=== PATIENT | male | born 1975 | race Caucasian/White ===

== ENCOUNTER 2016-07-09 20:15 | Emergency (ER) | payer BC ==
[2016-07-09 21:10] VITALS: BP 163/109
[2016-07-09] MEDS ORDERED: Ketorolac INJ* 60 MG/2 ML VIAL IM ONE (21:32)
--- NOTE | 2016-07-09 22:03 | RAD ---
INDICATION: Neck pain. COMPARISON: There are no prior studies available for comparison. TECHNIQUE: 5 views of the cervical spine were obtained including lateral, oblique, AP and open-mouth odontoid views. FINDINGS: The exam is slightly limited. The skull base is cut off on the film as well as the inferior portion of the C7 vertebra. There is straightening of the cervical spine with decrease in the normal cervical lordosis. No prevertebral soft tissue swelling or fracture is seen. There is mild disc space narrowing and uncinate process spurring present at the C3-C4, C4-C5 and C5-C6 levels. There is mild to moderate bilateral neural foraminal narrowing at those levels. IMPRESSION: 1. SLIGHTLY LIMITED EXAM. 2. STRAIGHTENING OF THE CERVICAL SPINE. 3. MILD TO MODERATE DIFFUSE DEGENERATIVE DISC DISEASE.
[2016-07-09] MEDS ORDERED: Carisoprodol TAB* 350 MG PO ONE (22:16)
[2016-07-09] MEDS ORDERED: HYDROcodone/ACETAMIN 5-325 MG* 1 TAB PO ONE ×2 (22:16→22:17)
--- NOTE | 2016-07-09 22:30 | UC ---
Neck Pain HPI - HPI Summary HPI Summary: THREE WEEKS OF NECK PAIN AND SPASMS WORSE ON LEFT SIDE OF NECK NEAR SPINE. HISTORY OF CHRONIC BACK PROBLEMS. ATTEMPTED TO TREAT CONCERN WITH IBUPROFEN, BUT PAIN GETTING MORE SEVERE. NOW 03/28. RADIATES UP NECK AND DOWN SPINE AND LEFT SHOULDER - History of Current Complaint Chief Complaint: UCGeneralIllness Stated Complaint: NECK PAIN Time Seen by Provider: 07/09/16 21:26 Hx Obtained From: Patient Onset/Duration Of Injury/Symptoms: Weeks Onset/Duration: Gradual Onset, Lasting Weeks, Worse Since - LAST THREE DAYS Severity: Moderate Location: Discrete At: - LEFT NECK Character: Spasmotic Aggravating Factors: Movement Alleviating Factors: Nothing Associated Signs & Symptoms: Positive: Nuchal Rigity - Risk Factors Meningitis Risk Factors: Negative - Allergies/Home Medications Allergies/Adverse Reactions: Allergies Allergy/AdvReac Type Severity Reaction Status Date / Time Bee Venom Allergy SWELLS Verified 07/09/16 21:10 Enalapril Allergy Rash Verified 07/09/16 21:10 Home Medications: Home Medications Ibuprofen TAB* [Advil TAB*] 800 mg PO PRN 07/09/16 [History] Naproxen TAB* [Naprosyn TAB*] 500 mg PO PRN 07/09/16 [History] PMH/Surg Hx/FS Hx/Imm Hx Previously Healthy: Yes Endocrine History Of: Denies: Diabetes, Thyroid Disease, Hyperthyroidism, Hypothyroidism, Dyslipidemia Cardiovascular History Of: Reports: Cardiac Disorders - HX A-FIB (HAD ABLATION) , Atrial Fibrillation - S/P ABLATION 06/04/15 Denies: Hypertension, Pacemaker/ICD, Myocardial Infarction, Congestive Heart Failure, Deep Vein Thrombosis, Bleeding Disorders Respiratory History Of: Denies: COPD, Asthma, Bronchitis, Pneumonia, Pulmonary Embolism GI/ History Of: Denies: Gastroesophageal Reflux, Ulcer, Gastrointestinal Bleed, Gall Bladder Disease, Kidney Stones, Diverticulitis, Renal Disease, Urosepsis Neurological History Of: Denies: TIA, CVA, Dementia, Seizures, Migraine Psychological History Of: Reports: Anxiety, Depression Denies: Bipolar Disorder, Schizophrenia, Post Traumatic Stress Disorder Cancer History Of: Denies: Lung Cancer, Colorectal Cancer, Breast Cancer, Prostate Cancer, Cervical Cancer Other History Of: Anticoagulant Therapy - He is supposed to be on Xarelto, but he ran out of this Rx 08/04. Negative For: HIV, Hepatitis B, Hepatitis C - Surgical History Surgical History: Yes Surgery Procedure, Year, and Place: HEART ABLATION FOR A-FIB 06/04/15, SURGERY FOR MELANOMA - Family History Known Family History: Positive: Diabetes, Other - STroke in father. Negative: Cardiac Disease, Hypertension Family History: NON CONTRIBUTORY - Social History Alcohol Use: Occasionally Substance Use Type: None Smoking Status (MU): Never Smoked Tobacco Type: Cigarettes Amount Used/How Often: CIGARS FOR ABOUT 1 YEAR Length of Time of Smoking/Using Tobacco: 1 YEAR Have You Smoked in the Last Year: No When Did the Patient Quit Smoking/Using Tobacco: 2 OR 3 YEARS AGO Cessation Counseling: Patient Advised to Stop - Immunization History Most Recent Influenza Vaccination: unknown Most Recent Tetanus Shot: unknown Most Recent Pneumonia Vaccination: unknown Review Of Systems Constitutional: Positive: Negative Skin: Positive: Negative Eyes: Positive: Negative ENT: Positive: Negative Respiratory: Positive: Negative Cardiovascular: Positive: Negative Gastrointestinal: Positive: Negative Genitourinary: Positive: Negative Musculoskeletal: Positive: Arthralgia, Myalgia Neurological: Positive: Negative Psychological: Positive: Negative All Other Systems Reviewed And Are Negative: Yes Physical Exam Triage Information Reviewed: Yes Appearance: Well-Appearing, Well-Nourished, Pain Distress Vital Signs: Initial Vital Signs Temp 99.2 F 07/09/16 21:06 Pulse 95 07/09/16 21:06 Resp 18 07/09/16 21:06 BP 163/109 07/09/16 21:06 Pulse Ox 100 07/09/16 21:06 Vital Signs Reviewed: Yes Eye Exam: Normal Eyes: Positive: Conjunctiva Clear ENT Exam: Normal ENT: Positive: Normal ENT inspection, Hearing grossly normal, Pharynx normal, TMs normal Dental Exam: Normal Neck: Positive: No Lymphadenopathy, Tenderness @ - LEFT CERVICAL PARASPINAL MUSCLES. Negative: Nuchal Rigidity Respiratory Exam: Normal Respiratory: Positive: Chest non-tender, Lungs clear, Normal breath sounds, No respiratory distress, No accessory muscle use Cardiovascular Exam: Normal Cardiovascular: Positive: RRR, No Murmur, Pulses Normal Abdominal Exam: Normal Abdomen Description: Positive: Nontender, No Organomegaly Musculoskeletal: Positive: ROM Limited @ - DISCOMFORT WITH FLEXION ROTATION OF NECK; NO CENTRAL SPINAL TENDERNESS. NEGATIVE BRUDZINSKIS, NEGATIVE KERNINGS Neurological Exam: Normal Psychological Exam: Normal Psychological: Positive: Normal Response To Family Skin Exam: Normal Neck Pain Course/Dx - Differential Dx/Diagnosis Differential Dx/HQI/PQRI: Sprain, Strain, Torticollis Provider Diagnoses: LEFT SIDED CERVICAL TORTICOLLIS Discharge - Discharge Plan Condition: Stable Disposition: HOME Prescriptions: Carisoprodol TAB* [Soma TAB*] 350 mg PO BID PRN #10 tab MDD two tabs PRN Reason: Spasms HYDROcodone/ACETAMIN 5-325 MG* [[place] 5-325 TAB*] 1 tab PO Q8H PRN #15 tab MDD THREE TABS PRN Reason: Pain Patient Education Materials: Cervical Strain (ED), Spasmodic Torticollis (ED) Referrals: [facility] [Outside] Haroon SLOAN,Godwin Pike [Primary Care Provider] - Additional Instructions: PHYSICAL THERAPY REFERRAL: You have been prescribed physical therapy. Treatments may include stretching, exercise, application of heat or cold, and other modalities. After an injury, PT can reduce swelling and pain. In recovery, PT is used to restore mobility and strength. Your specific treatment goals are: Reduction of Swelling (EGS, US, ice as needed) __x___ Pain Reduction (EGS, US, ice as needed) ____x_ TENS Pack Fitting and Instruction Wound Hydrotherapy ___x__ Preservation of Mobility ___x__ Quaker of Mobility ___x__ Strength Quaker ___x__ Work or Sports Hardening This instruction sheet also serves as your PHYSICAL THERAPY REFERRAL! Please take it with you to the therapist, so he/she will be aware of your diagnosis and treatment plan. You may see the physical therapist of your choice for these treatments, but may wish to check with your insurance to be sure the provider you select is covered. It's important to see the doctor to whom you have been referred for follow up.x
== END 2016-07-09 22:42 | disposition home or self-care (01) ==
LOC: UCEAST 20:15
DX: M43.6 Torticollis (principal); Z79.01 Long term (current) use of anticoagulants; I48.91 Unspecified atrial fibrillation; Z87.891 Personal history of nicotine dependence
CPT/HCPCS: 72050; 96372; 99213; A9270-GY; G0463; J1885

== ENCOUNTER 2016-08-13 19:47 | Emergency (ER) | payer BC ==
[2016-08-13 20:50] VITALS: BP 137/71
--- NOTE | 2016-08-13 21:20 | UC ---
FLU HPI - HPI Summary HPI Summary: Day 2 of fever, cough, cold chills and loose stool - History of Current Complaint Chief Complaint: UCGeneralIllness Stated Complaint: FEVER, AND DIARRHEA Time Seen by Provider: 08/13/16 21:06 Hx Obtained From: Patient Onset/Duration: Sudden Onset, Lasting Days - day 2, Still Present Severity Currently: Moderate Severity Initially: Moderate Pain Intensity: 7 Pain Scale Used: 0-10 Numeric Associated Signs & Symptoms: Positive: Fever, Myalgia, Cough, Nasal Congestion, Headache, Diarrhea - Allergy/Home Medications Allergies/Adverse Reactions: Allergies Allergy/AdvReac Type Severity Reaction Status Date / Time Bee Venom Allergy SWELLS Verified 07/09/16 21:10 Enalapril Allergy Rash Verified 07/09/16 21:10 Home Medications: Home Medications Oseltamivir CAP* [Tamiflu CAP*] 75 mg PO DAILY 08/13/16 [History Confirmed 08/13] PMH/Surg Hx/FS Hx/Imm Hx Previously Healthy: No Endocrine History Of: Denies: Diabetes, Thyroid Disease, Hyperthyroidism, Hypothyroidism, Dyslipidemia Cardiovascular History Of: Reports: Cardiac Disorders - HX A-FIB (HAD ABLATION) , Atrial Fibrillation - S/P ABLATION 06/04/15 Denies: Hypertension, Pacemaker/ICD, Myocardial Infarction, Congestive Heart Failure, Deep Vein Thrombosis, Bleeding Disorders Respiratory History Of: Denies: COPD, Asthma, Bronchitis, Pneumonia, Pulmonary Embolism GI/ History Of: Denies: Gastroesophageal Reflux, Ulcer, Gastrointestinal Bleed, Gall Bladder Disease, Kidney Stones, Diverticulitis, Renal Disease, Urosepsis Neurological History Of: Denies: TIA, CVA, Dementia, Seizures, Migraine Psychological History Of: Reports: Anxiety, Depression Denies: Bipolar Disorder, Schizophrenia, Post Traumatic Stress Disorder Cancer History Of: Denies: Lung Cancer, Colorectal Cancer, Breast Cancer, Prostate Cancer, Cervical Cancer Other History Of: Anticoagulant Therapy - He is supposed to be on Xarelto, but he ran out of this Rx 08/04. Negative For: HIV, Hepatitis B, Hepatitis C - Surgical History Surgical History: Yes Surgery Procedure, Year, and Place: HEART ABLATION FOR A-FIB 06/04/15, SURGERY FOR [facility] - Family History Known Family History: Positive: Diabetes, Other - STroke in father. Negative: Cardiac Disease, Hypertension - Social History Occupation: Employed Full-time Lives: With Family Alcohol Use: Occasionally Substance Use Type: None Smoking Status (MU): Never Smoked Tobacco Type: Cigarettes Amount Used/How Often: CIGARS FOR ABOUT 1 YEAR Length of Time of Smoking/Using Tobacco: 1 YEAR Have You Smoked in the Last Year: No When Did the Patient Quit Smoking/Using Tobacco: 2 OR 3 YEARS AGO - Immunization History Most Recent Influenza Vaccination: unknown Most Recent Tetanus Shot: unknown Most Recent Pneumonia Vaccination: unknown Review of Systems Constitutional: Fever, Chills, Fatigue Skin: Negative Eyes: Negative ENT: Nasal Discharge Respiratory: Cough Cardiovascular: Negative Gastrointestinal: Diarrhea Genitourinary: Negative Motor: Negative Neurovascular: Negative Musculoskeletal: Arthralgia, Myalgia Neurological: Negative Psychological: Negative All Other Systems Reviewed And Are Negative: Yes Physical Exam Triage Information Reviewed: Yes Appearance: No Pain Distress, Ill-Appearing, Obese Vital Signs: Initial Vital Signs Temp 100.9 F 08/13/16 20:46 Pulse 122 08/13/16 20:46 Resp 18 08/13/16 20:46 BP 137/71 08/13/16 20:46 Pulse Ox 97 08/13/16 20:46 Vital Signs Reviewed: Yes Eye Exam: Normal Eyes: Positive: Conjunctiva Clear ENT Exam: Normal ENT: Positive: Normal ENT inspection, Hearing grossly normal, Pharynx normal, Nasal congestion, Nasal drainage, TMs normal. Negative: Tonsillar swelling, Tonsillar exudate, Trismus, Muffled/hoarse voice Neck exam: Normal Neck: Positive: Supple, Nontender, No Lymphadenopathy Respiratory Exam: Normal Respiratory: Positive: Chest non-tender, Lungs clear, Normal breath sounds, No respiratory distress, No accessory muscle use Cardiovascular Exam: Other Cardiovascular: Positive: No Murmur, Pulses Normal, Brisk Capillary Refill, Tachycardia Abdominal Exam: Normal Abdomen Description: Positive: Nontender, No Organomegaly, Soft Bowel Sounds: Positive: Present Musculoskeletal Exam: Normal Musculoskeletal: Positive: Strength Intact, ROM Intact, No Edema Neurological Exam: Normal Neurological: Positive: Alert, Muscle Tone Normal Psychological Exam: Normal Psychological: Positive: Normal Response To Family Skin Exam: Normal Diagnostics - Laboratory Diagnostic Studies Completed/Ordered: Influenza A(+) Flu Course/Dx - Course Course Of Treatment: 5 day course of Tamiflu, increase fluids, rest, follow with pcp prn - Differential Dx/Diagnosis Differential Diagnosis/HQI/PQRI: Influenza, Pneumonia, RSV, Upper Respiratory Infection Provider Diagnoses: Influenza A Discharge - Discharge Plan Condition: Stable Disposition: HOME Patient Education Materials: Acetaminophen (By mouth), Ibuprofen (By mouth), Influenza (ED), Nutrition Tips for Relief of Diarrhea (ED) Forms: *Work Release Referrals: Haroon SLOAN,Godwin Pike [Primary Care Provider] - If Needed
[2016-08-13] MEDS ORDERED: Oseltamivir CAP* 75 MG PO ONE (21:40)
== END 2016-08-13 21:53 | disposition home or self-care (01) ==
LOC: UCEAST 19:47
DX: J10.1 Influenza due to other identified influenza virus with other respiratory manifestations (principal); Z88.8 Allergy status to other drugs, medicaments and biological substances; I48.91 Unspecified atrial fibrillation; Z79.01 Long term (current) use of anticoagulants; Z87.891 Personal history of nicotine dependence; E66.9 Obesity, unspecified
CPT/HCPCS: 87502; 99212; A9270-GY; G0463

== ENCOUNTER 2017-03-01 05:59 | Inpatient (IN) | payer BC, OTHER ==
--- NOTE | 2017-02-17 23:37 | HP ---
CC: Godwin Patiño MD * PREOPERATIVE HISTORY AND PHYSICAL: DATE OF PREOPERATIVE HISTORY AND PHYSICAL EXAMINATION: 02/15/17. DATE OF ADMISSION: This patient is scheduled for AA admission by Dr. Campbell on 03/01/17. ATTENDING SURGEON: Nik Campbell MD *(dictated by Shanel Raines NP) CHIEF COMPLAINT: Morbid obesity. HISTORY OF PRESENT ILLNESS: The patient is a 41-year-old male, he stands at 6 feet and weighs 307 pounds for a body mass index of 41.6. He has obesity- related comorbidities of obstructive sleep apnea, requiring CPAP, hypertension, dyslipidemia, GERD, and back pain. He was initially seen in our office for bariatric consultation in December 2014 and at that time, weighed 340 pounds with a body mass index of 46. The patient had an episode of atrial fibrillation and underwent cardiac ablation at that time at [facility] in [place]. This was successful and the patient had done well losing weight on his own with mindful eating and after he lost about 30 pounds and got down to 310, he had difficulty losing anymore weight. For this reason, he returned to discuss laparoscopic sleeve gastrectomy with Dr. Campbell. The patient completed medically supervised weight loss, and underwent all of the preoperative diagnostic evaluations and testing and was deemed an appropriate candidate by Dr. Campbell to proceed with laparoscopic sleeve gastrectomy. Dr. Campbell described the nature of the surgical procedure, the relevant risks, benefits, and alteratives and today I reviewed the typical hospitalization, the expected postoperative care and recovery, the need for compliance with the postoperative stages of the bariatric diet, vitamin and mineral supplementation, consistent exercise, and followup visits. The patient has had a chance to ask questions and stated that he understands the information and is satisfied with the answers given to his questions. He will sign surgical consent on the day of surgery. He started his 2-week preoperative diet on 02/15/17. PAST MEDICAL HISTORY: Paroxysmal atrial fibrillation, status post ablation in [address] Medrano at [facility]; obstructive sleep apnea requiring CPAP; hypertension; dyslipidemia; depression; GERD; back pain, skin fold rashes and psoriasis. PAST SURGICAL HISTORY: Excision of melanoma on the lower back by Dr. Kuo in May 2016; ear tubes in childhood. MEDICATIONS: Cartia XT 120 mg p.o. daily every evening. ALLERGIES: ENALAPRIL caused rash and he is allergic to BEE STINGS. SOCIAL HISTORY: He has never been a smoker. He occasionally drinks beer. He denies the use of other substances. 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 He tells that he has great support from family and friends to proceed with bariatric surgery. FAMILY HISTORY: Mother, age 61, recently hospitalized with stroke and a history of deep vein thrombosis. Father, age 63, with type 2 diabetes and suffered a stroke at age 40. He reports that many of the paternal relatives are diabetics and one of his paternal uncles who weighed over 400 pounds had gastric bypass and is doing well. He is not aware of any family history of anesthesia complications, bleeding tendencies, or clotting disorders. REVIEW OF SYSTEMS: Constitutional: No fevers or chills or night sweats or excessive fatigue. Endocrine: No diabetes or thyroid disease. Hematologic: No easy bruising or bleeding. No history of deep vein thrombosis or pulmonary embolism. Respiratory: No dyspnea on exertion. No cough. Cardiovascular: No chest pain or lower extremity edema or syncopal episodes. Please see attached Cardiology consultation note and clearance note from Dr. Nunes. A 24-hour Holter monitor from 11/25/16 revealed normal sinus rhythm. No atrial fibrillation. Echocardiogram on 12/06/16, left ventricle normal in size, concentric hypertrophy of the left ventricle, ejection fraction 50% to 55%. Gastrointestinal: No nausea, vomiting, diarrhea, or constipation. No change in bowel habits. The patient had an upper GI series in March 2016 with unremarkable results. Genitourinary: No dysuria. No hematuria. Musculoskeletal: Mild lower back pain. Neurologic: No headache or blurred vision. Normal gait. General: Denies previous anesthesia complications and he has never received a blood transfusion. He reports 70% hearing loss in the left ear. PHYSICAL EXAMINATION GENERAL SURVEY: The patient is a 41-year-old morbidly obese male, in no acute distress. VITAL SIGNS: Height 72 inches, weight 307 pounds, body mass index 41.6. Blood pressure 132/88, pulse 80 and regular, respiratory rate 16, temperature is 97.4 tympanic. HEENT: Benign. NECK: Supple. No cervical lymphadenopathy. No carotid bruits. LUNGS: Breath sounds bilaterally clear and equal. HEART: Regular rate and rhythm. No murmurs or rubs appreciated. ABDOMEN: Active bowel sounds. Obese, soft, nontender throughout. No obvious masses, organomegaly, or evidence of ventral hernia. GENITALIA: Deferred. RECTAL: Deferred. BACK: Well healed surgical scar, right lower aspect. EXTREMITIES: Warm. No edema. No skin ulcerations. NEUROLOGIC: Alert and oriented x3. Steady gait. SKIN: Warm, dry, and intact. IMPRESSION: Morbid obesity. PLAN: AA admission to Dr. Campbell's service on 03/01/17, for laparoscopic sleeve gastrectomy. SIVA RAINES, STAFF CONSULTANT [id number]/[facility] #: [id number] [place]
[~2017-03-01 05:59] MED LIST: Buffered Lidocaine 0.9% SYRIN* 5 ML/SYR SYRINGE INTRADERM ONE
[2017-03-01] MEDS ORDERED: Dexamethasone IV* 4 MG/ML 1 ML (4 MG) IV SLOW PU ONE (06:00)
[2017-03-01] MEDS ORDERED: Famotidine IV* 10 MG/ML 2 ML (20 mg) IV ONE (06:00)
[2017-03-01] MEDS ORDERED: Heparin VIAL(*) 5000 UNITS/ML VIAL (FIVE THOUSAND) ONE (06:07)
[2017-03-01] MEDS ORDERED: ceFAZolin 1 GM ADVAN(*) 1 GM ADDV.VIAL IVPB ONE (06:08)
[2017-03-01] MEDS ORDERED: Dexamethasone IV* 4 MG/ML 1 ML (4 MG) ONE (06:08)
[2017-03-01] MEDS ORDERED: Buffered Lidocaine 0.9% SYRIN* 5 ML/SYR SYRINGE ONE (06:08)
[2017-03-01] MEDS ORDERED: Clindamycin 900 MG IVPREMIX(* 900 MG/50 ML SDV IV ONE (06:08)
[2017-03-01] MEDS ORDERED: ceFAZolin 2 GM PREMIX (*) 50 ML IVPB ONE (06:08)
[2017-03-01] MEDS ORDERED: Famotidine IV* 10 MG/ML 2 ML (20 mg) ONE (06:08)
[2017-03-01] MEDS ORDERED: Propofol* 10 MG/ML 20 ML BTL IV PUSH ONE (07:14)
[2017-03-01] MEDS ORDERED: Lidocaine 2% PF * 5 ML VIAL ONE (07:14)
[2017-03-01] MEDS ORDERED: Bupivacaine 0.25% SDV* 30 ML ONE (07:14)
[2017-03-01] MEDS ORDERED: Succinylcholine* 20 MG/ML 10 ML VIAL ONE (07:14)
[2017-03-01] MEDS ORDERED: fentaNYL* 50 MCG/ML 5 ML VIAL (250 MCG VIAL) ONE (07:14)
[2017-03-01] MEDS ORDERED: Midazolam* 1 MG/ML 5 ML VIAL (5 MG) ONE (07:14)
[2017-03-01] MEDS ORDERED: Rocuronium* 10 MG/ML VIAL ONE (07:15)
[2017-03-01] MEDS ORDERED: Ondansetron INJ* 2 MG/ML VIAL ONE ×2 (08:30→09:45)
[2017-03-01] MEDS ORDERED: Scopolamine 1.5 mg* PATCH TRANSDERM PRN (08:32)
[2017-03-01] MEDS ORDERED: Ketorolac INJ* 30 MG/ML 1 ML VIAL IV PRN (08:32)
[2017-03-01] MEDS ORDERED: Morphine INJ* 2 MG/ML 1 ML CARPUJECT IV PRN (08:32)
[2017-03-01] MEDS ORDERED: fentaNYL* 50 MCG/ML 2 ML VIAL (100 MCG VIAL) IV PRN (08:32)
[2017-03-01] MEDS ORDERED: fentaNYL* 50 MCG/ML 2 ML VIAL (100 MCG VIAL) ONE ×2 (08:35→08:56)
[2017-03-01] MEDS ORDERED: HYDROmorphone* 1 MG/ML 1 ML CARPUJECT IV PRN (09:19)
[2017-03-01] MEDS ORDERED: diPHENhydraMINE IV* 50 MG/ML 1 ml VIAL (BENADRYL) SLOW PUSH PRN (09:19)
[2017-03-01] MEDS ORDERED: Acetaminophen ADULT LIQ* 650 MG/20.3 ML UDC PO PRN (09:19)
[2017-03-01] MEDS ORDERED: Ondansetron INJ* 2 MG/ML VIAL IV PRN (09:19)
[2017-03-01] MEDS ORDERED: HYDROcodone/ACET. 7.5/325 LIQ* 15 ML UDC PO PRN (09:19)
--- NOTE | 2017-03-01 09:19 | SURGPN ---
Brief Operative Note - Surgery Procedures: Procedures Pre-OP Diagnoses: Clinically severe obesity Post-op Diagnosis: same Procedure: Laparoscopic sleeve gastrectomy Surgeon: Shannan Asst: ARSENIO Sarmiento Anethesia: CHRISTAL Ambrosio EBL: minimal IVF: 1500cc LR Specimen: portion of stomach Drains: none
[2017-03-01] MEDS ORDERED: PROCHLORPERAZINE INJ 5 MG/ML 2 ML VIAL ONE (09:45)
[2017-03-01] MEDS ORDERED: Scopolamine 1.5 mg* PATCH ONE (09:45)
[2017-03-01] MEDS: PROCHLORPERAZINE INJ 5 MG/ML 2 ML VIAL IV PRN ×2 (09:47→09:58)
[2017-03-01] MEDS ORDERED: Ketorolac INJ* 30 MG/ML 1 ML VIAL ONE (10:31)
[2017-03-01] MEDS: Ketorolac INJ* 30 MG/ML 1 ML VIAL IV PRN (17:54)
[2017-03-01] MEDS: Famotidine IV* 10 MG/ML 2 ML (20 mg) IV SCH (23:01)
[2017-03-01] MEDS: Heparin VIAL(*) 5000 UNITS/ML VIAL (FIVE THOUSAND) SUBCUT SCH (23:01)
--- NOTE | 2017-03-01 23:15 | OP ---
CC: Godwin Patiño MD; Dr. Nunes; [facility] * DATE OF OPERATION: 03/01/17 - ROOM #353 DATE OF : 77 SURGEON: Nik Campbell MD STAFFING RN: ARSENIO Crooks ANESTHESIOLOGIST: Dr. Yamileth Ambrosio. ANESTHESIA: General anesthesia. PRE-OP DIAGNOSES: 1. Chronically severe obesity. 2. Obstructive sleep apnea. 3. Hypertension. 4. Hypercholesterolemia. 5. Gastroesophageal reflux disease. 6. Joint pain. POST-OP DIAGNOSES: 1. Chronically severe obesity. 2. Obstructive sleep apnea. 3. Hypertension. 4. Hypercholesterolemia. 5. Gastroesophageal reflux disease. 6. Joint pain. OPERATIVE PROCEDURE: Laparoscopic sleeve gastrectomy. ESTIMATED BLOOD LOSS: Minimal. FLUIDS: 1500 cc of crystalloid fluid given. SPECIMEN: Portion of stomach. DRAINS: None. COUNTS: Lap pad count and instrument count correct at the end of the procedure. DESCRIPTION OF PROCEDURE: The patient was identified in the preoperative area. The case was discussed with him and his and the patient was marked and consent signed. After discussion of the possible complications of the surgery, the patient was taken to the operating room and placed on the operating table in a supine position. Preoperative antibiotics were given. Sequential devices were placed on bilateral lower extremities. General anesthesia was induced. The patient's abdomen was clipped of hair and then the the abdomen was prepped and draped in a standard surgical fashion. A time-out was performed. Folds of the umbilicus were elevated anteriorly and a Veress needle was inserted into the abdominal cavity, which was then allowed to insufflate to a pressure of 15 mmHg. The patient tolerated the insufflation well. Periumbilical incision was made and a 12-mm trocar was inserted at the site. Laparoscope was then inserted through this and there was no evidence of injuries from the trocar insertion or from the Veress needle, which was then removed. Additional trocars were then placed in the following position, a 12 mm in the right upper quadrant and two 5 mm in the left upper quadrant. Review of the abdomen showed normal-appearing bowel, a nondistended stomach, normal appearing liver. A Arnie retractor was then inserted through a subxiphoid incision and the liver was retracted anteriorly into the right. This exposed the gastroesophageal fat pat. This was grasped and retracted towards the right lower quadrant and blunt and sharp dissection was utilized to expose the left ilene. A retrogastric tunnel was made at approximately 6 cm on the greater curvature proximal to the pylorus. The vasculature to the greater curvature of the stomach was taken with a LigaSure device right up to the angle of His. Posterior attachments were taken as well until we were able to completely rotate the stomach. No hiatal hernia was appreciated. The sleeve stomach was created using a black 60-mm load stapling device with reinforcement strips. In order to utilize this, we upsized the 12-mm trocar in the right upper quadrant to a 15-mm trocar. The stapler was placed, extending from the greater curvature extending towards the incisura and prior to firing it , we placed a 40 bougie down into the distal stomach. Additional 60-mm purple GI stapling device with reinforcement strips were taken staying close to the bougie with the last stapler to fire being a 45-mm purple GI stapler with reinforcement strips. The staple line was intact with no twisting or cord strand. The bougie was removed without effort. Arnie retractor was removed. Liver showed no evidence of bleeding and the resected stomach was placed in endoscopic retrieval bag and brought out through the right upper quadrant port site and passed off as specimen. We closed this port site at the facial layer with a 0 Polysorb suture using an Endo Close device in a simple fashion. The abdomen was allowed to collapse. Trocars were removed under direct vision and all 5 skin incisions were reapproximated with skin abigail followed by sterile dressing. The patient tolerated the procedure well and was transferred to PACU in stable condition. [id number]/[place] #: [id number] CLIFTON-FINE HOSPITALKartik
[2017-03-02] MEDS: Ketorolac INJ* 30 MG/ML 1 ML VIAL IV PRN ×3 (00:16→13:58)
[2017-03-02] MEDS: Heparin VIAL(*) 5000 UNITS/ML VIAL (FIVE THOUSAND) SUBCUT SCH ×3 (06:09→21:25)
--- NOTE | 2017-03-02 09:05 | RAD ---
HISTORY: Status post gastric sleeve COMPARISONS: April 12, 2016 TECHNIQUE: A single contrast fluoroscopic study was performed of the esophagus and upper GI tract. Water-soluble liquid contrast was administered under fluoroscopic observation. Multiple digital spot images were obtained Total fluoroscopy time is 1 minute. FINDINGS: ESOPHAGUS: The esophagus is normal in contour, course, and caliber. There is no stricture or web. Contrast passes easily through the gastroesophageal junction into the stomach. There is normal esophageal motility. STOMACH: The patient is status post sleeve gastrectomy. There is impaired passage of contrast through the gastric remnant, with extensive gastroesophageal reflux. There is no appreciable extravasation. No reflux was elicited on the current examination. DUODENUM: The visualized portion of the duodenum is unremarkable. IMPRESSION: 1. DELAYED PASSAGE OF CONTRAST THROUGH THE GASTRIC REMNANT. 2. EXTENSIVE GASTROESOPHAGEAL REFLUX. 3. NO APPRECIABLE EXTRAVASATION CPT II Codes: 6045F
[2017-03-02] MEDS: Famotidine IV* 10 MG/ML 2 ML (20 mg) IV SCH ×2 (09:09→21:25)
[2017-03-02] MEDS: D5W 1/2 NS KCl 20 Meq 1000 ML* 1,000 ML IV SCH ×2 (09:09→17:19)
--- NOTE | 2017-03-02 09:53 | PN ---
Progress Note - Progress Note Date of Service: 03/02/17 Note: S: POD #1. Doing well; only had pain when he had to lie down for the UGI study. Denies N/V, regurg. Passing flatus. Ambulating. O: Vital Signs - 8 hr 03/02/17 03/02/17 03/02/17 02:00 02:26 03:44 Temperature 98.1 F Pulse Rate 96 Respiratory 16 16 Rate Blood Pressure 146/79 (mmHg) O2 Sat by Pulse 97 98 98 Oximetry 03/02/17 03/02/17 03/02/17 04:00 06:11 07:58 Temperature 98.2 F Pulse Rate 94 Respiratory 16 16 16 Rate Blood Pressure 149/74 (mmHg) O2 Sat by Pulse 97 98 99 Oximetry 03/02/17 03/02/17 08:10 08:59 Temperature Pulse Rate Respiratory 16 Rate Blood Pressure (mmHg) O2 Sat by Pulse 99 99 Oximetry Intake and Output Last 24 Hours 02/28/17 03/01/17 03/02/17 03/03/17 06:59 06:59 06:59 06:59 Intake Total 2698 1108 Output Total 965 300 Balance 1733 808 Weight 287 lb Intake: IV Fluids 2698 1108 3GM ANCEF 100 900MG CLINDAMYCIN 50 LR 2548 1108 Oral 0 Output: Urine 950 300 Emesis 15 Other: Estimated Void Medium # Voids 1 Gen: up in chair; appears comfortable Heart: reg Lungs: clear Abd: +BS; lap sites ok w/ min drainage on dsgs; soft; no sig tenderness UGI: ESOPHAGUS: The esophagus is normal in contour, course, and caliber. There is no stricture or web. Contrast passes easily through the gastroesophageal junction into the stomach. There is normal esophageal motility. STOMACH: The patient is status post sleeve gastrectomy. There is impaired passage of contrast through the gastric remnant, with extensive gastroesophageal reflux. There is no appreciable extravasation. No reflux was elicited on the current examination. DUODENUM: The visualized portion of the duodenum is unremarkable. IMPRESSION: 1. DELAYED PASSAGE OF CONTRAST THROUGH THE GASTRIC REMNANT. 2. EXTENSIVE GASTROESOPHAGEAL REFLUX. 3. NO APPRECIABLE EXTRAVASATION A/P: s/p lap sleeve gastrectomy, doing well, with UGI as noted. Will d/w Dr. Campbell prior to starting clears.
[2017-03-02 11:00] LABS: Hematocrit 37 % (42-52); Hemoglobin 12.5 g/dl (14.0-18.0); Mean Corpuscular HGB Conc 34 g/dl (31-36); Mean Corpuscular Hemoglobin 28 pg (27-31); Mean Corpuscular Volume 83 fL (80-94); Mean Platelet Volume 10 um3 (7.4-10.4); Red Blood Count 4.48 10^6/ul (4.0-5.4); Red Cell Distribution Width 15 % (10.5-15); White Blood Count 19.6 10^3/ul (3.5-10.8)
[2017-03-03] MEDS: D5W 1/2 NS KCl 20 Meq 1000 ML* 1,000 ML IV SCH (01:22)
[2017-03-03] MEDS: Heparin VIAL(*) 5000 UNITS/ML VIAL (FIVE THOUSAND) SUBCUT SCH (05:44)
[2017-03-03] MEDS: Famotidine IV* 10 MG/ML 2 ML (20 mg) IV SCH (08:36)
[2017-03-03 09:02] VITALS: BP 132/68
--- NOTE | 2017-03-04 03:32 | DS ---
* AMENDED REPORT NOW INCLUDES DATE OF ADMISSION/DISCHARGE - ESIGNED BEFORE ADJUSTMENT * CC: Dr. Godwin Patiño; [facility]; [facility]; Dr. Nunes * DISCHARGE SUMMARY: DATE OF ADMISSION: 03/01/17 DATE OF DISCHARGE: 03/03/17 HISTORY: Mr. West is a 41-year-old gentleman who was worked up as an outpatient with a diagnosis of clinically severe obesity, obstructive sleep apnea, and hypertension, presented on same day of surgery on 03/01/17 and underwent a laparoscopic sleeve gastrectomy. Please see operative report for full details. Procedure was uneventful and the patient was transferred to the PACU and onto the short stay surgical unit. The patient was maintained on n.p.o. status for postop day #1 where he underwent an upper GI study. His images were reviewed and discussed with the radiologist, showed slow passage through the sleeve stomach. The patient was later in the day started on a bariatric clear diet. Pain was controlled and by postoperative day #2, the patient was doing well, tolerating bariatric clears and was ready for discharge. On the day of discharge, physical exam was performed. The patient's T-max was 99.4. He is currently afebrile. Blood pressure 132/68, heart rate 88. Alert and oriented x3, in no apparent distress. Head, eyes, ears, nose, and throat: Normocephalic, atraumatic. Sclerae anicteric. Mucous membranes are moist. Lungs are clear to auscultation bilaterally. Abdomen: Soft, nondistended, nontender. Dressings intact with no signs of erythema. Extremities without calf tenderness. IMPRESSION: Postoperative day #2 from laparoscopic sleeve gastrectomy, doing well. Plan is for discharge home. The patient will hold his aspirin, but continue his Cardizem. He will be followed up next week [facility]. Appointment is given and the patient is aware of this. [id number]/[facility] #: [id number] LEENA
[2017-03-04] MEDS ORDERED: Scopolomine PATCH Remove* 1 NOTE MISC PATCH OFF ONE (08:33)
== END 2017-03-03 10:55 | disposition home or self-care (01) | DRG 403 ==
LOC: AA 05:59 → SSU 11:46
PROVIDERS: ADMIT Surgery; ATTEND Surgery
PROC: 0DB64Z3 Excision of Stomach, Percutaneous Endoscopic Approach, Vertical (ICD-10-PCS; principal; 2017-03-01 07:45)
DX: E66.01 Morbid (severe) obesity due to excess calories (principal); I48.0 Paroxysmal atrial fibrillation; I10 Essential (primary) hypertension; Z68.41 Body mass index [BMI] 40.0-44.9, adult; G47.33 Obstructive sleep apnea (adult) (pediatric); E78.5 Hyperlipidemia, unspecified; K21.9 Gastro-esophageal reflux disease without esophagitis; M54.9 Dorsalgia, unspecified; F32.9 Major depressive disorder, single episode, unspecified; L40.9 Psoriasis, unspecified; Z85.820 Personal history of malignant melanoma of skin; Z79.899 Other long term (current) drug therapy; Z88.8 Allergy status to other drugs, medicaments and biological substances; Z91.030 Bee allergy status; Z82.3 Family history of stroke; Z83.3 Family history of diabetes mellitus; H91.92 Unspecified hearing loss, left ear
CPT/HCPCS: 36415; 74246; 85025; 88307; 94760; A9270-GY; J0330; J0690; J0780; J1100; J1644; J1885; J2250; J2405; J2704; J3010

== ENCOUNTER 2017-03-22 09:08 | Inpatient (IN) | payer BC ==
[2017-03-22 09:59] LABS: Hematocrit 37 % (42-52); Hemoglobin 12.1 g/dl (14.0-18.0); Mean Corpuscular HGB Conc 33 g/dl (31-36); Mean Corpuscular Hemoglobin 28 pg (27-31); Mean Corpuscular Volume 84 fL (80-94); Mean Platelet Volume 10 um3 (7.4-10.4); Red Blood Count 4.37 10^6/ul (4.0-5.4); Red Cell Distribution Width 15 % (10.5-15); White Blood Count 8.5 10^3/ul (3.5-10.8)
[2017-03-22] MEDS ORDERED: Ketorolac INJ* 30 MG/ML 1 ML VIAL IV ONE (10:03)
[2017-03-22] MEDS ORDERED: NS 0.9% 1000 ML* 1,000 ML IV ONE (10:03)
[2017-03-22 10:16] LABS: Albumin 3.9 g/dL (3.2-5.2); BUN/Creatinine Ratio 11.5 (8-20); C Reactive Protein 62.36 mg/L (< 5.00); Calcium 8.9 mg/dL (8.6-10.3); EGFR African American 141.8 (>60); EGFR Non-African American 110.2 (>60); Globulin 3.1 g/dL (2-4); Potassium 3.7 mmol/L (3.5-5.0); Total Bilirubin 0.9 mg/dL (0.2-1.0)
[2017-03-22 10:34] LABS: Urine Bacteria Absent (Absent); Urine Bilirubin Negative (Negative); Urine Glucose Negative (Negative); Urine Nitrite Negative (Negative)
[2017-03-22] MEDS ORDERED: Iohexol 300* (CONTRAST) 10 ML SDV IV ONE (10:51)
--- NOTE | 2017-03-22 11:21 | RAD ---
CLINICAL HISTORY: Postop fever status post gastric sleeve COMPARISON: December 10, 2012 TECHNIQUE: Multiple contiguous axial CT scans were obtained of the abdomen and pelvis after the administration of intravenous contrast. Coronal and sagittal multiplanar reformations are submitted for review. Oral contrast was administered. Delayed images were obtained through the abdomen and pelvis. FINDINGS: LUNG BASES: The lung bases are clear. LIVER: There is low-attenuation lesion of the right lobe of liver suggestive of a hepatic cyst. BILE DUCTS: There is no intrahepatic or extrahepatic biliary dilatation. GALLBLADDER: The gallbladder is normal, without pericholecystic inflammatory change. PANCREAS: The pancreas is normal, without mass or ductal dilatation. SPLEEN: There are multiple low-attenuation splenic lesion suggestive of cysts versus hemangiomas. UPPER GI TRACT: Evaluation of the gastrointestinal tract is limited by incomplete gastric distention. There is postsurgical change to the upper GI tract consistent with history of sleeve gastrectomy. There is a loculated fluid collection along the greater curvature of the stomach without peripheral enhancement. This measures approximately 9 x 5.3 x 4.3 cm. SMALL BOWEL AND MESENTERY: The small bowel is normal in contour, course, and caliber. There is no obstruction or dilatation. COLON: There is extensive diverticulosis of the distal transverse, descending, and sigmoid colon. There is no pericolonic inflammatory change. ADRENALS: Normal bilaterally. KIDNEYS: The kidneys are normal in shape, size, contour, and axis. There is no hydronephrosis or nephrolithiasis. BLADDER: The bladder is smooth in contour. PELVIC ORGANS: The prostate gland is normal. The seminal vesicles are symmetric. AORTA: The aorta is normal. IVC: Unremarkable LYMPH NODES: There is no lymphadenopathy by size criteria. ABDOMINAL WALL: There is no evidence for abdominal wall hernia. BONES AND SOFT TISSUES: Mild degenerative changes noted of the spine OTHER: There is high attenuation fluid noted within the pelvis measuring up to 55 Hounsfield units. IMPRESSION: 1. POSTSURGICAL CHANGE TO THE UPPER GI TRACT. 2. THERE IS A LOCULATED FLUID COLLECTION WITHOUT PERIPHERAL ENHANCEMENT ALONG THE GREATER CURVATURE OF THE STOMACH MEASURING APPROXIMATELY 9 CM IN GREATEST DIMENSION. THE DIFFERENTIAL INCLUDES POSTOPERATIVE SYNDROME VERSUS EARLY ABSCESS. 3. THERE IS HIGH ATTENUATION FLUID NOTED WITHIN THE PELVIS. THIS MAY INDICATE HEMOPERITONEUM, OR CONTRAST-CONTAINING FLUID WITHIN THE PELVIS, THOUGH THERE IS NO OBVIOUS SOURCE OF EXTRAVASATION. THERE IS NO FREE INTRAPERITONEAL GAS. 4. EXTENSIVE DIVERTICULOSIS.
[2017-03-22] MEDS ORDERED: HYDROmorphone INJ* 1 MG/ML CARPUJECT SYRINGE IV PRN (11:59)
[2017-03-22] MEDS ORDERED: ZOSYN 3.375 GM x ONE DOSE over 30 miuntes IVPB ×2 (13:00)
--- NOTE | 2017-03-22 13:54 | RAD ---
INDICATION: Status post laparoscopic gastric sleeve procedure of evaluate for leak. COMPARISON: Comparison is made with a prior upper GI series from March 02, [address] of the abdomen and pelvis from March 22, 2017. Technique: An upper GI series was performed with Gastrografin contrast. Approximately 1.5 minutes of intermittent fluoroscopic guidance were used during the exam. Findings: The patient is status post laparoscopic gastric sleeve procedure. Esophageal peristalsis appeared normal. There appears to be a small sliding-type hernia. There is narrowing of the gastric body consistent with the patient's prior gastric sleeve procedure. There is no evidence for an anastomotic leak. The stomach emptied normally. IMPRESSION: STATUS POST GASTRIC SLEEVE PROCEDURE, NO EVIDENCE FOR INTRAPERITONEAL LEAK. CPT II Codes: 6045F
[2017-03-22] MEDS ORDERED: Heparin VIAL(*) 5000 UNITS/ML VIAL (FIVE THOUSAND) SUBCUT SCH (14:00)
--- NOTE | 2017-03-22 15:36 | RAD ---
Indication: Gastrosplenic ligament post gastric sleeve hematoma/seroma versus abscess. Targeted ultrasound requested to assess for feasibility of ultrasound-guided percutaneous drainage. Comparison: CT of the same date. Technique: Limited ultrasound of the LEFT upper quadrant performed with the patient RIGHT lateral decubitus. REPORT AND IMPRESSION: The 6.5 cm maximum dimension loculated fluid collection on CT is not definitively be identified. The visualized hypoechoic 4.0 x 3.5 x 3.7 cm structure visualized on ultrasound is indeterminate and may represent part of the collection however conspicuity is suboptimal to facilitate ultrasound-guided needle placement. On this basis collection sampling/catheter placement should be performed under CT guidance. Results discussed with Dr. Campbell 03/22/2017 3:00 PM EDT
[2017-03-22] MEDS ORDERED: HYDROmorphone INJ* 2 MG/ML CARPUJECT SYRINGE IV PRN (20:16)
--- NOTE | 2017-03-22 22:58 | HP ---
CC: [facility]; [facility]; Dr. Godwin Patiño * HISTORY AND PHYSICAL: DATE OF ADMISSION: 03/22/17 HISTORY OF PRESENT ILLNESS: Mr. West is a 41-year-old gentleman who is 3 weeks status post laparoscopic sleeve gastrectomy. The patient's postoperative course was eventful in that the patient had delayed passage of contrast through the stomach and ended up going home on postoperative day 2 rather than day 1 as typical. Other than that, the patient did very well and had no complaints, has followed up in routine fashion in our offices and has lost close to 40 pounds. Yesterday morning, the patient had a sudden onset of back pain. It was accompanied with fevers. The patient was able to go to sleep and by the following morning, continued to have fever as high as 103 at home and had now the pain shift to his abdomen, mostly described in the periumbilical region. It was nonradiating. The patient had decreased appetite and felt overall down. He denied any shortness of breath or chest pain. He had been having normal bowel movements up until recently and he had a looser bowel movement. I saw the patient in the emergency room. He was promptly worked up with a CAT scan of the abdomen and pelvis, which he underwent p.o. contrast as well as IV contrast. The images were reviewed and were consistent with a loculated fluid collection along the curvature of the stomach approximately 9 cm in its greatest dimension. There is no air tracking within the site. There also was some fluid in the pelvis. The patient was started on IV fluids and antibiotics, admitted. He underwent an upper GI study, which was within normal limits and showed no extravasation of contrast. He did not have any discomfort when he did these studies. Additionally, he underwent an ultrasound of the abdomen as requested by Radiology when I asked them to evaluate him for possible percutaneous drainage of the collection in the lesser sac. Recommendation is for a CT-guided drainage of the site and I have been discussing this with radiologist throughout the day with a plan to perform this tomorrow. PAST MEDICAL HISTORY: Paroxysmal atrial fibrillation, status post ablation, obstructive sleep apnea, hypertension, hypercholesterolemia, depression, GERD, back pain, and psoriasis. REVIEW OF SYSTEMS: The patient has fevers as described, chills as well. No chest pain or shortness of breath, but he had nausea, decreased appetite but no vomiting. Abdominal complaint as described. No dysuria or hematuria. Loose bowel movements, especially in the emergency room after the CAT scan. Extremities with no complaints of calf pain. PHYSICAL EXAMINATION IN THE EMERGENCY ROOM: GENERAL: He is alert and oriented, in mild distress. VITAL SIGNS: The patient had a T-max of 102.5 and he arrived with a heart rate in the 130s. HEENT: Normocephalic, atraumatic. Sclerae anicteric. Mucous membranes are dry. LUNGS: Clear to auscultation bilaterally. HEART: S1, S2. No murmurs. ABDOMEN: Soft, obese. Tender on deep palpation in the periumbilical region but no . No hernias or masses noted. No CVA tenderness. EXTREMITIES: Within normal limits. RECTAL: Not performed. DIAGNOSTIC STUDIES/LAB DATA: Labs and imaging as described. IMPRESSION: Three weeks status post sleeve gastrectomy with concern of abdominal abscess and gastric leak. Differential diagnosis does include postoperative changes and hematoma with inflammatory process from some other entity. The patient does have small little areas of splenic infarct, is likely secondary to sleeve stomach. This could be the reason for his sepsis as well, but we will mostly entertain leak at the sleeve stomach, although this does not show on additional imaging. Nevertheless, the patient will be placed on antibiotics. I started him on Zosyn drainage. We will continue n.p.o. for now and give him possibly TPN with the possibility of sending him home on TPN and perform an outpatient endoscopy if the patient shows improvement. The patient understands this and we will be discussing it throughout the day and throughout the night. We will follow him very closely. There was a chance he might need to make a trip to the operating room urgently. We also discussed the possibility of a planned surgery if what episode occurred at this time resolves only to reoccur. [id number]/[facility] #: [id number] LEENA
[2017-03-23] MEDS: NS 0.9% 1000 ML* 1,000 ML IV SCH ×3 (01:57→17:31)
[2017-03-23 06:28] LABS: Hematocrit 31 % (42-52); Hemoglobin 10.3 g/dl (14.0-18.0); Mean Corpuscular HGB Conc 33 g/dl (31-36); Mean Corpuscular Hemoglobin 28 pg (27-31); Mean Corpuscular Volume 85 fL (80-94); Mean Platelet Volume 10 um3 (7.4-10.4); Red Blood Count 3.65 10^6/ul (4.0-5.4); Red Cell Distribution Width 15 % (10.5-15); White Blood Count 3.2 10^3/ul (3.5-10.8)
[2017-03-23 06:44] LABS: Albumin 3.2 g/dL (3.2-5.2); BUN/Creatinine Ratio 11.7 (8-20); C Reactive Protein 157.15 mg/L (< 5.00); Calcium 8.4 mg/dL (8.6-10.3); EGFR African American 143.9 (>60); EGFR Non-African American 111.9 (>60); Globulin 2.7 g/dL (2-4); Potassium 3.9 mmol/L (3.5-5.0); Total Bilirubin 0.8 mg/dL (0.2-1.0); Total Protein 5.9 g/dL (6.4-8.9)
[2017-03-23 06:56] LABS: Add Diff/Slide Review? Slide Review Added; Comments Flag Yes
--- NOTE | 2017-03-23 08:03 | ED ---
Amanda Al Thomas, scribed for Kleber Steward MD on 03/22/17 at 0954 . Abdominal Pain/Male - HPI Summary HPI Summary: The pt is a 41 y/o M presenting to the ED c/o periumbilical abd pain that began yesterday. The patient had a gastric sleeve operation performed three weeks ago by Dr. Campbell. The abdominal pain is constant. The pain is rated 5/10. The pain is aggravated by palpation and alleviated by nothing. 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 Yesterday, the patient had back pain and LLQ pain. Pt additionally c/o fever (101.4), nausea, generalized malaise, and chills. He has been moving his bowels as per normal but he notes a smaller volume secondary to decreased food intake. Pt denies urinary symptoms. He last ate a small amount of salmon yesterday at 17:30. He is accompanied by his . - History of Current Complaint Chief Complaint: EDAbdPain Stated Complaint: FEVER/STOMACH & BACK PAIN Time Seen by Provider: 03/22/17 09:29 Hx Obtained From: Patient, Family/Secondary Special Education Teacher - is present Onset/Duration: Lasting Days - onset yesterday, Still Present Timing: Constant Pain Intensity: 5 Pain Scale Used: 0-10 Numeric Location: Umbilical Radiates: No Aggravating Factor(s): Other: - Palpation Alleviating Factor(s): Nothing Associated Signs And Symptoms: Positive: Fever - at 101.4, Nausea, Other - Generalized malaise, chills - Allergies/Home Medications Allergies/Adverse Reactions: Allergies Allergy/AdvReac Type Severity Reaction Status Date / Time Bee Venom Allergy Severe SWELLS Verified 03/22/17 10:50 Enalapril Allergy Intermediate Rash Verified 03/22/17 09:47 Home Medications: Home Medications B-12 Super Strength 1 drop PO DAILY 03/22/17 [History Confirmed 03/22/17] Childrens Chewable Vitami 2 tab PO DAILY 03/22/17 [History Confirmed 03/22/17] PMH/Surg Hx/FS Hx/Imm Hx Previously Healthy: No Endocrine/Hematology History: Reports: Hx Anticoagulant Therapy - He is supposed to be on Xarelto, but he ran out of this Rx 08/04. Denies: Hx Diabetes, Hx Thyroid Disease Cardiovascular History: Reports: Hx Hypertension, Other Cardiovascular Problems/ Disorders - AFIB Denies: Hx Angina, Hx Congestive Heart Failure, Hx Coronary Artery Disease, Hx Deep Vein Thrombosis, Hx Hypercholesterolemia, Hx Myocardial Infarction, Hx Pacemaker/ICD, Hx Valvular Heart Disease Respiratory History: Reports: Hx Sleep Apnea, Other Respiratory Problems/ Disorders - SLEEP APNEA Denies: Hx Asthma, Hx Chronic Obstructive Pulmonary Disease (COPD), Hx Lung Cancer, Hx Pneumonia, Hx Pulmonary Embolism GI History: Reports: Hx Diverticulosis Denies: Hx Gall Bladder Disease, Hx Gastrointestinal Bleed, Hx Ulcer, Hx Urosepsis Comment Only: Other GI Disorders - diverticulitis History: Denies: Hx Kidney Stones, Hx Renal Disease Sensory History: Denies: Hx Contacts or Glasses, Hx Hearing Aid Opthamlomology History: Denies: Hx Contacts or Glasses Neurological History: Reports: Hx Headaches Denies: Hx Dementia, Hx Migraine, Hx Seizures, Hx Transient Ischemic Attacks (TIA) Psychiatric History: Reports: Hx Anxiety, Hx Depression Denies: Hx Schizophrenia, Hx Bipolar Disorder - Cancer History Cancer Type, Location and Year: MELANOMA Hx Chemotherapy: No - Surgical History Surgery Procedure, Year, and Place: HEART ABLATION FOR A-FIB 06/04/15, SURGERY FOR MELANOMA Hx Anesthesia Reactions: No Infectious Disease History: No Infectious Disease History: Denies: Hx Hepatitis, Hx of Known/Suspected MRSA, Traveled Outside the [place] in Last 30 Days - Family History Known Family History: Positive: Diabetes, Other - STroke in father. Negative: Cardiac Disease, Hypertension Family History: NON CONTRIBUTORY - Social History Alcohol Use: Occasionally Substance Use Type: Reports: None Smoking Status (MU): Never Smoked Tobacco Type: Cigarettes Amount Used/How Often: CIGARS FOR ABOUT 1 YEAR Length of Time of Smoking/Using Tobacco: 1 YEAR Have You Smoked in the Last Year: No Review of Systems Positive: Fever - at 101.4, Chills, Other - Generalized malaise Positive: Abdominal Pain - periumbilical, onset yesterday, worsened with palpation, he notes LLQ pain yesterday, Nausea Positive: no symptoms reported Positive: Other - Back pain (yesterday) All Other Systems Reviewed And Are Negative: Yes Physical Exam Triage Information Reviewed: Yes Vital Signs On Initial Exam: Initial Vitals Temp Pulse Resp BP Pulse Ox 101.4 F 133 20 130/81 96 03/22/17 09:10 03/22/17 09:10 03/22/17 09:10 03/22/17 09:10 03/22/17 09:10 Vital Signs Reviewed: Yes Appearance: Positive: Well-Appearing, No Pain Distress, Obese Skin: Positive: Warm, Skin Color Reflects Adequate Perfusion, Dry Head/Face: Positive: Normal Head/Face Inspection Eyes: Positive: Normal ENT: Positive: Normal ENT inspection Neck: Positive: Supple, Nontender Respiratory/Lung Sounds: Positive: Clear to Auscultation, Breath Sounds Present Cardiovascular: Positive: RRR Abdomen Description: Positive: Soft, Other: - Tender to the LLQ and periumbilicus Bowel Sounds: Positive: Present Musculoskeletal: Positive: Normal Neurological: Positive: Normal Psychiatric: Positive: Normal, Affect/Mood Appropriate Diagnostics - Vital Signs Vital Signs Temp Pulse Resp BP Pulse Ox 03/22/17 09:10 101.4 F 133 20 130/81 96 - Laboratory Lab Results: Lab Results 03/22/17 03/22/17 03/22/17 Range/Units 09:40 09:40 10:15 WBC 8.5 (3.5-10.8) 10^3/ul RBC 4.37 (4.0-5.4) 10^6/ul Hgb 12.1 L (14.0-18.0) g/dl Hct 37 L (42-52) % MCV 84 (80-94) fL MCH 28 (27-31) pg MCHC 33 (31-36) g/dl RDW 15 (10.5-15) % Plt Count 163 (150-450) 10^3/ul MPV 10 (7.4-10.4) um3 Neut % (Auto) 94.1 H (38-83) % Lymph % (Auto) 2.9 L (25-47) % [place] % (Auto) 2.9 (1-9) % Eos % (Auto) 0 (0-6) % Baso % (Auto) 0.1 (0-2) % Absolute Neuts (auto) 8.0 H (1.5-7.7) 10^3/ul Absolute Lymphs (auto) 0.2 L (1.0-4.8) 10^3/ul Absolute Monos (auto) 0.2 (0-0.8) 10^3/ul Absolute Eos (auto) 0 (0-0.6) 10^3/ul Absolute Basos (auto) 0 (0-0.2) 10^3/ul Absolute Nucleated RBC 0 10^3/ul Nucleated RBC % 0 Sodium 137 (133-145) mmol/L Potassium 3.7 (3.5-5.0) mmol/L Chloride 102 (101-111) mmol/L Carbon Dioxide 23 (22-32) mmol/L Anion Gap 12 H (2-11) mmol/L BUN 9 (6-24) mg/dL Creatinine 0.78 (0.67-1.17) mg/dL Est GFR ( Amer) 141.8 (>60) Est GFR (Non-Af Amer) 110.2 (>60) BUN/Creatinine Ratio 11.5 (8-20) Glucose 89 (70-100) mg/dL Calcium 8.9 (8.6-10.3) mg/dL Total Bilirubin 0.90 (0.2-1.0) mg/dL AST 19 (13-39) U/L ALT 37 (7-52) U/L Alkaline Phosphatase 44 (34-104) U/L C-Reactive Protein 62.36 H (< 5.00) mg/L Total Protein 7.0 (6.4-8.9) g/dL Albumin 3.9 (3.2-5.2) g/dL Globulin 3.1 (2-4) g/dL Albumin/Globulin Ratio 1.3 (1-3) Urine Color Yellow Urine Appearance Clear Urine pH 5.0 (5-9) Ur Specific [place] 1.020 (1.010-1.030) Urine Protein Negative (Negative) Urine Ketones 2+ H (Negative) Urine Blood 2+ H (Negative) Urine Nitrate Negative (Negative) Urine Bilirubin Negative (Negative) Urine Urobilinogen Negative (Negative) Ur Leukocyte Esterase Negative (Negative) Urine WBC (Auto) Trace(0-5/hpf) (Absent) Urine RBC (Auto) Trace(0-2/hpf) (Absent) Urine Bacteria Absent (Absent) Urine Glucose Negative (Negative) Result Diagrams: 03/23/17 06:15 03/23/17 06:15 Lab Statement: Any lab studies that have been ordered have been reviewed, and results considered in the medical decision making process. - CT CT Abd/Pel CT Interpretation: Positive (See Comments) - 1. POSTSURGICAL CHANGE TO THE UPPER GI TRACT. 2. THERE IS A LOCULATED FLUID COLLECTION WITHOUT PERIPHERAL ENHANCEMENT ALONG THE GREATER CURVATURE OF THE STOMACH MEASURING APPROXIMATELY 9 CM IN GREATEST DIMENSION. THE DIFFERENTIAL INCLUDES POSTOPERATIVE SYNDROME VERSUS EARLY ABSCESS. 3. THERE IS HIGH ATTENUATION FLUID NOTED WITHIN THE PELVIS. THIS MAY INDICATE HEMOPERITONEUM, OR CONTRAST-CONTAINING FLUID WITHIN THE PELVIS, THOUGH THERE IS NO OBVIOUS SOURCE OF EXTRAVASATION. THERE IS NO FREE INTRAPERITONEAL GAS. 4. EXTENSIVE DIVERTICULOSIS. ED physician has reviewed this report and agrees. CT Interpretation Completed By: Radiologist Abdominal Pain Fem Course/Dx - Course Course Of Treatment: Mr. West presented post op with a fever. He was seen by Dr. Campbell in the department, given IV fluids and a CT showed a possible abscess. He is being given antibiotics and admitted to the surgical service. - Diagnoses Provider Diagnoses: Postoperative fever - Provider Notifications Discussed Care Of Patient With: Nik Campbell Time Discussed With Above Provider: 09:30 Instructed by Provider To: Other - I consulted with Dr. Campbell, surgery, regarding patient care. He came to the ED to evaluate the patient. He admits the patient to [facility] at 11:54. Discharge - Discharge Plan Condition: Fair Disposition: ADMITTED TO [facility] The documentation as recorded by the Amanda ritchie Thomas accurately reflects the service I personally performed and the decisions made by me, Kleber Steward MD.
--- NOTE | 2017-03-23 11:48 | PN ---
Progress Note - Progress Note Date of Service: 03/23/17 SOAP: Subjective:RLQ pain,no nausea,passing flatus and loose stools,no dysuria [] Objective:afeb;VSS;abd:+bs,soft,tender RLQ and periumbilical,no rebound or guarding [] Assessment: Laboratory Last Values WBC 3.2 10^3/ul (3.5-10.8) L 03/23/17 06:15 RBC 3.65 10^6/ul (4.0-5.4) L 03/23/17 06:15 Hgb 10.3 g/dl (14.0-18.0) L 03/23/17 06:15 Hct 31 % (42-52) L 03/23/17 06:15 MCV 85 fL (80-94) 03/23/17 06:15 MCH 28 pg (27-31) 03/23/17 06:15 MCHC 33 g/dl (31-36) 03/23/17 06:15 RDW 15 % (10.5-15) 03/23/17 06:15 Plt Count 122 10^3/ul (150-450) L 03/23/17 06:15 MPV 10 um3 (7.4-10.4) 03/23/17 06:15 Neut % (Auto) 67.2 % (38-83) 03/23/17 06:15 Lymph % (Auto) 19.0 % (25-47) L 03/23/17 06:15 [place] % (Auto) 12.4 % (1-9) H 03/23/17 06:15 Eos % (Auto) 1.0 % (0-6) 03/23/17 06:15 Baso % (Auto) 0.4 % (0-2) 03/23/17 06:15 Absolute Neuts (auto) 2.2 10^3/ul (1.5-7.7) 03/23/17 06:15 Absolute Lymphs (auto) 0.6 10^3/ul (1.0-4.8) L 03/23/17 06:15 Absolute Monos (auto) 0.4 10^3/ul (0-0.8) 03/23/17 06:15 Absolute Eos (auto) 0 10^3/ul (0-0.6) 03/23/17 06:15 Absolute Basos (auto) 0 10^3/ul (0-0.2) 03/23/17 06:15 Absolute Nucleated RBC 0 10^3/ul 03/23/17 06:15 Nucleated RBC % 0 03/23/17 06:15 Sodium 141 mmol/L (133-145) 03/23/17 06:15 Potassium 3.9 mmol/L (3.5-5.0) 03/23/17 06:15 Chloride 109 mmol/L (101-111) 03/23/17 06:15 Carbon Dioxide 25 mmol/L (22-32) 03/23/17 06:15 Anion Gap 7 mmol/L (2-11) 03/23/17 06:15 BUN 9 mg/dL (6-24) 03/23/17 06:15 Creatinine 0.77 mg/dL (0.67-1.17) 03/23/17 06:15 Est GFR ( Amer) 143.9 (>60) 03/23/17 06:15 Est GFR (Non-Af Amer) 111.9 (>60) 03/23/17 06:15 BUN/Creatinine Ratio 11.7 (8-20) 03/23/17 06:15 Glucose 87 mg/dL (70-100) 03/23/17 06:15 Calcium 8.4 mg/dL (8.6-10.3) L 03/23/17 06:15 Total Bilirubin 0.80 mg/dL (0.2-1.0) 03/23/17 06:15 AST 18 U/L (13-39) 03/23/17 06:15 ALT 33 U/L (7-52) 03/23/17 06:15 Alkaline Phosphatase 38 U/L (34-104) 03/23/17 06:15 Troponin I 0.01 ng/mL (<0.04) 03/22/17 23:10 C-Reactive Protein 157.15 mg/L (< 5.00) H 03/23/17 06:15 Total Protein 5.9 g/dL (6.4-8.9) L 03/23/17 06:15 Albumin 3.2 g/dL (3.2-5.2) 03/23/17 06:15 Globulin 2.7 g/dL (2-4) 03/23/17 06:15 Albumin/Globulin Ratio 1.2 (1-3) 03/23/17 06:15 Lipase 26 U/L (11.0-82.0) 03/23/17 06:15 Urine Color Yellow 03/22/17 10:15 Urine Appearance Clear 03/22/17 10:15 Urine pH 5.0 (5-9) 03/22/17 10:15 Ur Specific [place] 1.020 (1.010-1.030) 03/22/17 10:15 Urine Protein Negative (Negative) 03/22/17 10:15 Urine Ketones 2+ (Negative) H 03/22/17 10:15 Urine Blood 2+ (Negative) H 03/22/17 10:15 Urine Nitrate Negative (Negative) 03/22/17 10:15 Urine Bilirubin Negative (Negative) 03/22/17 10:15 Urine Urobilinogen Negative (Negative) 03/22/17 10:15 Ur Leukocyte Esterase Negative (Negative) 03/22/17 10:15 Urine WBC (Auto) Trace(0-5/hpf) (Absent) 03/22/17 10:15 Urine RBC (Auto) Trace(0-2/hpf) (Absent) 03/22/17 10:15 Urine Bacteria Absent (Absent) 03/22/17 10:15 Urine Glucose Negative (Negative) 03/22/17 10:15 []await[address] CT guided drainage of loculated abdominal collection Plan:review results of CT guided drainage when available;NPO;IV ABX;PICC for TPN []
[2017-03-23] MEDS ORDERED: fentaNYL* 50 MCG/ML 2 ML VIAL (100 MCG VIAL) ONE (15:44)
[2017-03-23] MEDS ORDERED: TPN* 24 HR with Dextrose 50% Water* 500 ML, Amino Acid Infusion 10%* 850 ML, Sterile Wa... CENTR SCH ×12 (17:00)
[2017-03-23] MEDS: Heparin VIAL(*) 5000 UNITS/ML VIAL (FIVE THOUSAND) SUBCUT SCH ×2 (17:01→22:00)
[2017-03-23] MEDS: Pantoprazole IV* 40 MG IV SCH (17:30)
--- NOTE | 2017-03-23 17:35 | RAD ---
INDICATION: 3 weeks post laparoscopic gastric sleeve bariatric surgery with LEFT upper quadrant pain and fever. 9 cm maximum dimension sharply circumscribed denser than water collection within the LEFT upper quadrant gastrosplenic ligament region. Differential includes seroma, postoperative hematoma, or abscess. CT-guided aspiration and potential drainage catheter placement requested. COMPARISON: March 22, 2017 CT and limited LEFT upper quadrant ultrasound. March 22, 2017 upper GI series. Written informed consent obtained. Timeout performed. PROCEDURE: Safe needle path to the circumscribed LEFT upper quadrant collection selected in the LEFT para midline far superior abdomen to avoid injury to the splenic flexure of the colon and spleen. Routine aseptic skin prep performed. Soft tissues extending to the abdominal wall musculature anesthetized with 5 mL 1% lidocaine. Through a small skin bev an 18-gauge coaxial needle was advanced under CT guidance into the collection. Attempted aspiration productive of only a 0.3 mL volume of blood. 10 mL sterile saline was injected into the collection and subsequently aspirated with clear dark red blood color fluid on return. No gross suggestion of pus. The needle was withdrawn. Post procedure CT images are without evidence for bleeding along the needle tract. The collection is unchanged in size compared with the March 22, 2017 CT. Sterile dressing applied. Procedure reasonably tolerated with pain responding to IV fentanyl without immediate complication. IMPRESSION: The constellation of findings strongly favors that the loculated sharply circumscribed mildly hyperdense collection at the LEFT upper quadrant gastrosplenic ligament represents organizing hematoma. The aspirated fluid was sent to the lab for Gram stain and culture. Results discussed with Dr. Campbell by telephone 03/23/2017 5:03 PM EDT
[2017-03-24] MEDS: NS 0.9% 1000 ML* 1,000 ML IV SCH ×5 (00:11→21:25)
[2017-03-24] MEDS: Heparin VIAL(*) 5000 UNITS/ML VIAL (FIVE THOUSAND) SUBCUT SCH ×3 (05:46→22:23)
[2017-03-24 07:56] LABS: Hematocrit 34 % (42-52); Hemoglobin 11.1 g/dl (14.0-18.0); Mean Corpuscular HGB Conc 33 g/dl (31-36); Mean Corpuscular Hemoglobin 28 pg (27-31); Mean Corpuscular Volume 84 fL (80-94); Mean Platelet Volume 10 um3 (7.4-10.4); Red Blood Count 4.05 10^6/ul (4.0-5.4); Red Cell Distribution Width 15 % (10.5-15); White Blood Count 4.3 10^3/ul (3.5-10.8)
[2017-03-24 08:24] LABS: Albumin 3.3 g/dL (3.2-5.2); BUN/Creatinine Ratio 7.6 (8-20); Calcium 8.4 mg/dL (8.6-10.3); EGFR African American 171.9 (>60); EGFR Non-African American 133.7 (>60); Globulin 2.8 g/dL (2-4); Potassium 3.8 mmol/L (3.5-5.0); Total Bilirubin 0.6 mg/dL (0.2-1.0); Total Protein 6.1 g/dL (6.4-8.9)
--- NOTE | 2017-03-24 08:29 | PN ---
Progress Note - Progress Note Date of Service: 03/24/17 Note: S/P sleeve w/ poss leak. Feels much better, no pain. Hungry. Afeb, VS OK Voiding well. Abd: Obese, soft, non-tender. (He notes that RLQ so much better than it was when he came in.) Remains on Zosyn. C&S pending on aspirate from last night. Will keep NPO until prelim. results available from C&S. Dr Campbell to re-eval PM today.
--- NOTE | 2017-03-24 13:37 | PN ---
Progress Note - Progress Note Date of Service: 03/24/17 SOAP: Subjective: [] Reynold West is a 41 year old male who has been admitted on Monday morning for abdominal pain, fever, and chills. He no longer has these symptoms today. The patient denies nausea, vomiting, diarrhea, or constipation. The patient was seen by Zack Moran. The patient had a gastric sleeve bypass surgery 3 weeks ago. Medications: Heparin Sodium (Porcine) (Heparin Vial(*)) 5,000 units SUBCUT 0600,1400,2200 [facility] Last Admin: 03/24/17 13:53 Dose: 5,000 units Piperacillin Sod/Tazobactam (Sod 3.375 gm/ Sodium Chloride) 100 mls @ 25 mls/ hr IVPB Q8H [facility] Last Admin: 03/24/17 08:31 Dose: 25 mls/hr Sodium Chloride (Ns 0.9% 1000 Ml*) 1,000 mls @ 150 mls/hr IV PER RATE [facility] Last Admin: 03/24/17 13:51 Dose: 150 mls/hr Objective: [] Vital Signs - 8 hr 03/24/17 03/24/17 03/24/17 07:10 08:30 11:20 Temperature 98.2 F 97.7 F Pulse Rate 71 80 Respiratory 16 16 17 Rate Blood Pressure 120/74 120/75 (mmHg) O2 Sat by Pulse 99 99 Oximetry Respiratory: crackles in the posterior lower lung bases Cardiac: S1, S2; no murmurs Abdominal: bowel sounds positive; no pain upon palpation Abnormal Lab Results 03/24/17 03/24/17 07:34 07:34 WBC 4.3 RBC 4.05 Hgb 11.1 L Hct 34 L MCV 84 MCH 28 MCHC 33 RDW 15 Plt Count 148 L MPV 10 Neut % (Auto) 72.0 Lymph % (Auto) 16.9 L [place] % (Auto) 9.5 H Eos % (Auto) 1.3 Baso % (Auto) 0.3 Absolute Neuts (auto) 3.1 Absolute Lymphs (auto) 0.7 L Absolute Monos (auto) 0.4 Absolute Eos (auto) 0.1 Absolute Basos (auto) 0 Absolute Nucleated RBC 0 Nucleated RBC % 0.1 Sodium 138 Potassium 3.8 Chloride 104 Carbon Dioxide 23 Anion Gap 11 BUN 5 L Creatinine 0.66 L Est GFR ( Amer) 171.9 Est GFR (Non-Af Amer) 133.7 BUN/Creatinine Ratio 7.6 L Glucose 71 Calcium 8.4 L Total Bilirubin 0.60 AST 15 ALT 29 Alkaline Phosphatase 37 Total Protein 6.1 L Albumin 3.3 Globulin 2.8 Albumin/Globulin Ratio 1.2 Assessment: [] Post-operative abdominal pain with chills and fever subsided. Plan: [] Wait for the cultures to come back. Clear liquids are allowed. Check CBC and CRP in the morning.
[2017-03-24] MEDS: Pantoprazole IV* 40 MG IV SCH (17:27)
--- NOTE | 2017-03-24 18:15 | PN ---
Progress Note - Progress Note Date of Service: 03/24/17 Note: Surgery Update: Patient continued to do well today; his prelim C&S shows no growth; discussed w / Dr. Campbell; will hold on TPN/PICC; will start clears; cont abx
[2017-03-25] MEDS: Heparin VIAL(*) 5000 UNITS/ML VIAL (FIVE THOUSAND) SUBCUT SCH (05:28)
[2017-03-25] MEDS: NS 0.9% 1000 ML* 1,000 ML IV SCH (05:30)
[2017-03-25 07:01] LABS: Hematocrit 34 % (42-52); Hemoglobin 11.2 g/dl (14.0-18.0); Mean Corpuscular HGB Conc 33 g/dl (31-36); Mean Corpuscular Hemoglobin 28 pg (27-31); Mean Corpuscular Volume 83 fL (80-94); Mean Platelet Volume 10 um3 (7.4-10.4); Red Blood Count 4.05 10^6/ul (4.0-5.4); Red Cell Distribution Width 15 % (10.5-15); White Blood Count 4.2 10^3/ul (3.5-10.8)
--- NOTE | 2017-03-25 08:13 | PN ---
Progress Note - Progress Note Date of Service: 03/24/17 SOAP: Subjective: Pt seen and case plan discussed. Pt feeling well. He is hungry Objective: af vss a and o x3, nad labs noted Assessment: S/p sleeve gastrectomy, re-admitted for fever, chills Unclear etiology, improving Plan: d/c tomorrow onliquids for until monday next week, and then puree. PO abx x10 more days
[2017-03-25 09:10] VITALS: BP 117/81
--- NOTE | 2017-03-25 10:02 | PN ---
Progress Note - Progress Note Date of Service: 03/25/17 Note: S/P gastric sleeve w/ p-op fever and hematoma Feels great. Afeb Yoana po's No pain Voiding well, stools loose Abd: obese, soft, non-tender C&S: no growth 2 days D/W pt and Dr Campbell Will disch on oral abx F/U [facility] 03/28
== END 2017-03-25 18:11 | disposition home or self-care (01) | DRG 813 ==
LOC: ED 09:08 → SSU 11:54
PROVIDERS: ADMIT Surgery; ATTEND Surgery
PROC: 0W9G3ZZ Drainage of Peritoneal Cavity, Percutaneous Approach (ICD-10-PCS; principal; 2017-03-23)
DX: K91.870 Postprocedural hematoma of a digestive system organ or structure following a digestive system procedure (principal); I48.0 Paroxysmal atrial fibrillation; I10 Essential (primary) hypertension; G47.33 Obstructive sleep apnea (adult) (pediatric); E78.00 Pure hypercholesterolemia, unspecified; F32.9 Major depressive disorder, single episode, unspecified; K21.9 Gastro-esophageal reflux disease without esophagitis; M54.9 Dorsalgia, unspecified; L40.9 Psoriasis, unspecified; Z88.8 Allergy status to other drugs, medicaments and biological substances; Z91.030 Bee allergy status; Z79.899 Other long term (current) drug therapy
CPT/HCPCS: 36415; 49406; 74177; 74246; 76705; 80053; 81003; 81015; 83690; 84484; 85025; 86140; 87040; 87070; 87205; 93005; J1170; J1644; J1885; J2543; J3010; J3480; Q9967

== ENCOUNTER 2017-07-10 08:02 | Emergency (ER) | payer BC ==
[2017-07-10 08:12] VITALS: BP 111/69
--- NOTE | 2017-07-10 08:52 | UC ---
FLU HPI - HPI Summary HPI Summary: few days of uri sx 2 days of temp 100.1 symone cough, body aches - History of Current Complaint Chief Complaint: UCGeneralIllness Stated Complaint: FLU SYMPTOMS Time Seen by Provider: 07/10/17 08:23 Hx Obtained From: Patient Onset/Duration: Gradual Onset, Lasting Days, Still Present Severity Currently: Mild Severity Initially: Mild Associated Signs & Symptoms: Positive: Fever, Myalgia, Cough, Nasal Congestion Related Hx: Smoking - Allergy/Home Medications Allergies/Adverse Reactions: Allergies Allergy/AdvReac Type Severity Reaction Status Date / Time Bee Venom Allergy Severe SWELLS Verified 07/10/17 08:12 Enalapril Allergy Intermediate Rash Verified 07/10/17 08:12 PMH/Surg Hx/FS Hx/Imm Hx Previously Healthy: Yes Other History Of: Anticoagulant Therapy - He is supposed to be on Xarelto, but he ran out of this Rx 08/04. Negative For: HIV, Hepatitis B, Hepatitis C - Surgical History Surgical History: Yes Surgery Procedure, Year, and Place: HEART ABLATION FOR A-FIB 06/04/15, SURGERY FOR MELANOMA - Family History Known Family History: Positive: Diabetes, Other - STroke in father. Negative: Cardiac Disease, Hypertension Family History: NON CONTRIBUTORY - Social History Occupation: Employed Full-time Lives: With Family Alcohol Use: Rare Substance Use Type: None Smoking Status (MU): Never Smoked Tobacco Type: Cigarettes Amount Used/How Often: CIGARS FOR ABOUT 1 YEAR Length of Time of Smoking/Using Tobacco: 1 YEAR Have You Smoked in the Last Year: No When Did the Patient Quit Smoking/Using Tobacco: 2 OR 3 YEARS AGO Household Exposure Type: Cigars - Immunization History Most Recent Influenza Vaccination: never Most Recent Tetanus Shot: unknown Most Recent Pneumonia Vaccination: unknown Review of Systems Constitutional: Negative, Fever - around 100.1 Skin: Negative Eyes: Negative ENT: Nasal Discharge Respiratory: Cough Cardiovascular: Negative Gastrointestinal: Negative Genitourinary: Negative Motor: Negative Neurovascular: Negative Musculoskeletal: Myalgia Neurological: Negative Psychological: Negative Is Patient Immunocompromised?: No All Other Systems Reviewed And Are Negative: Yes Physical Exam Triage Information Reviewed: Yes Appearance: No Pain Distress, Well-Nourished, Ill-Appearing - mild Vital Signs: Initial Vital Signs Temp 99.7 F 07/10/17 08:08 Pulse 101 07/10/17 08:08 Resp 19 01/22/18 08:08 BP 111/69 07/10/17 08:08 Pulse Ox 97 07/10/17 08:08 Vital Signs Reviewed: Yes Eye Exam: Normal Eyes: Positive: Conjunctiva Clear ENT Exam: Normal ENT: Positive: Normal ENT inspection, Hearing grossly normal, Pharynx normal, TMs normal, Uvula midline. Negative: Nasal congestion, Nasal drainage, Tonsillar swelling, Tonsillar exudate, Trismus, Muffled voice, Hoarse voice, Dental tenderness, Sinus tenderness Dental Exam: Normal Neck exam: Normal Neck: Positive: Supple, Nontender, No Lymphadenopathy Respiratory Exam: Normal Respiratory: Positive: Chest non-tender, Lungs clear, Normal breath sounds, No respiratory distress, No accessory muscle use Cardiovascular Exam: Normal Cardiovascular: Positive: RRR, No Murmur, Pulses Normal, Brisk Capillary Refill Musculoskeletal Exam: Normal Musculoskeletal: Positive: Strength Intact, ROM Intact, No Edema Neurological Exam: Normal Neurological: Positive: Alert, Muscle Tone Normal Psychological Exam: Normal Skin Exam: Normal Diagnostics - Laboratory Diagnostic Studies Completed/Ordered: RST (-) Flu Course/Dx - Course Course Of Treatment: otc medication for symptom relief, increase fluids, tylenol ibuprofen for pain follow with pcp - Differential Dx/Diagnosis Provider Diagnoses: URI Viral illness Discharge - Discharge Plan Condition: Stable Disposition: HOME Patient Education Materials: Ibuprofen (By mouth), Upper Respiratory Infection (ED) Forms: *Work Release Referrals: Akhil Jones, [employer] SALES REPRESENTATIVE [Primary Care Provider] - If Needed
== END 2017-07-10 09:01 | disposition home or self-care (01) ==
LOC: UCEAST 08:02
DX: J06.9 Acute upper respiratory infection, unspecified (principal); Z87.891 Personal history of nicotine dependence
CPT/HCPCS: 87502; 99211; G0463

== ENCOUNTER 2017-09-28 16:09 | Emergency (ER) | payer BC ==
--- OUTSIDE RECORDS SUMMARY | 2017-09-28 16:40 | XMS REPORT ---
:1975 External Reference #:[id number] Author Organization [facility] Address [address] [address] Phone [phone] Care Team Providers Name Role Phone Akhil Jones NP Primary Care Physician Unavailable Payers Type Date Identification Numbers Payment Provider Subscriber Commercial Effective: Policy Number: BS Joshua Cantu 2017 [id number] PayID: [id number] [address] [address] JOCELYN Kuhn [address] [employer] Part B Expires: 2017 Policy Number: BS Joshua Cantu [id number] PayID: [id number] [address] [address] JOCELYN Kuhn [address] [employer]igap Part B Effective: 2014 Policy Number: BS Joshua Cantu [id number] Expires: 2015 PayID: [id number] [address] [address] JOCELYN Kuhn [address] [employer]ig[employer] Part B Expires: 2014 Policy Number: BS Sabrina CALDERÓNShannon Cantu [id number] PayID: [id number] [address] [address] JOCELYN Kuhn [address] [employer]igap Part B Expires: 2009 Policy Number: [id number] [employer] Reynold Cantu Group Number: [id number] [address] PayID: [place] [address] Medigap Part B Expires: 2015 Policy Number: Tyler Mclean Ppo Reynold Cantu [id number] PayID: [id number] [address] [address] PiterJOCELYN ram [address] Problems Date Description Provider Status Onset: 01/20/2015 Paroxysmal atrial fibrillation Tyrone Solis NP Active Note: recurrent Onset: 01/20/2015 Sleep apnea Tyrone Solis NP Active Onset: 01/20/2015 Body mass index 30+ - obesity Tyrone Solis NP Active Onset: 05/05/2017 H/O Malignant melanoma Akhil Jones NP Active Family History Date Family Member(s) Problem(s) Comments General Cancer General Alzheimer's Disease Father Diabetes Mother alive and well Social History Type Date Description Comments Marital Status Lives With Occupation 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 ETOH Use Occasional wine Recreational Drug Use Denies Drug Use Smoking Patient is a former smoker Daily Caffeine Does Not Consume Caffeine Exercise Type/Frequency Exercises regularly Allergies, Adverse Reactions, Alerts Date Description Reaction Status Severity Comments 10/11/2010 Bee Sting Anaphylaxis active Severe 09/30/2014 Enalapril active Rash 10/11/2010 Allergy To Some Antibiotic inactive Medications Medication Date Status Form Strength Qnty SIG Indications Ordering Provider Flintstonlila / Active Chewtabs 60mg 2 by Unknown Complete 0000 mouth every day Vitamin D / Active Tablets 2000Unit 1 by Unknown 0000 mouth every day Vitamin B12 / Active Tablets ER 1000mcg 1 by Unknown 0000 mouth every day Omeprazole / Active Capsules DR 40mg 1 by L[place], 0000 mouth MD Paul daily Diclofenac 05/05/ Hx Gel 1% 200gm apply 4 M54.5 Akhil Sodium 2017 - grams to TAHIRA Jones 07/23/ affected 2018 area twice daily Tramadol HCL 05/05/ Hx Tablets 50mg 42tabs 1-2 M54.5 Akhil 2017 - tablets TAHIRA Jones 09/21/ every 8 2018 hours as needed for pain. Hydrocodone 02/15/ Hx Solution 7.5-325mg/ 240ml 10ml-15ml Shanel Bitartrate/Ac 2017 15ML by mouth B. etaminophen every 4-6 [place], hours as [employer] needed for pain Diltiazem CD 12/28/ Hx Caps ER 24HR 120mg 30caps 1 by I10 Qutaybeh 2017 mouth S. every day Brian Nunes. No Active Unknown Medications 2016 - 2016 Cardizem CD 02/19/ Hx Caps ER 24HR 240mg 90caps 1 by Qutaybeh 2015 - mouth S. 11/23/ every day Des, 2016 [facility] Klor-Con M20 02/03/ Hx Tablets ER 20Meq 90tabs 1 by Qutaybeh 2015 - mouth S. 11/23/ every day Des, 2016 [facility] Prozac 11/12/ Hx 40mg 1 tablet Unknown 2014 po qd Cipro / Hx Tablets 500mg 20tabs 1 po bid Unknown 2014 Flagyl / Hx Tablets 500mg 21tabs 1 po tid Unknown 2014 Nasonex / Hx Suspension 50mcg/Act 1units 2 sprays Unknown - to each nostril 2014 twice daily prn Cardizem CD / Hx Caps ER 24HR 240mg 30caps 1 po qd Qutaybeh 0000 - S. 02/02/ Des 2014 [facility] Potassium // Hx daily Unknown Chloride - 2014 Magnesium / Hx Capsules 400mg 90caps 1 by Qutaybeh Oxide 0000 - mouth S. 11/23/ day Des2016 [facility] Sotalol HCL / Hx Tablets 80mg 180tab 1 by Qutaybeh 0000 - s mouth S. 11/23/ twice a Des2016 [facility] Fluoxetine / Hx Capsules 20mg 1 by Unknown HCL 0000 - mouth 05/10/ day 2014 Xarelto / Hx Tablets 20mg 90tabs 1 by Qutaybeh 0000 - mouth S. 11/23/ every day Des2016 [facility] Cardizem / Hx Tablets 60mg 1 by Unknown 0000 - mouth 02/19/ three 2014 times daily Omeprazole / Hx Capsules DR 20mg 1 by Unknown 0000 - mouth 07/23/ every day 2017 Medications Administered in Office Medication Date Status Form Strength Qnty SIG Indications Ordering Provider PPD Administered Injection [place] [employer] Immunizations CPT Code Status Date Vaccine Lot # [id number] Given 05/05/2017 Tdap - Tetanus/Diptheria/Acellular Pertussis [id number] Vital Signs Date Vital Result Comment 09/22/2017 Height 72 inches 6'0" Weight 199.38 lb Heart Rate 68 /min BP Systolic Sitting 104 mmHg Lue large cuff BP Diastolic Sitting 72 mmHg Lue large cuff Respiratory Rate 16 /min O2 % BldC Oximetry 98 % On Ra BMI (Body Mass Index) 27.0 kg/m2 07/24/2017 Height 72 inches 6'0" Weight 214.75 lb with shoes Heart Rate 88 /min BP Systolic 110 mmHg L/Arm Reg Cuff BP Diastolic 78 mmHg L/Arm Reg Cuff BMI (Body Mass Index) 29.1 kg/m2 Ejection Fraction 50-55% Echocardiogram 07/12/2017 05/05/2017 Height 72 inches 6'0" Weight 247.00 lb Heart Rate 84 /min BP Systolic 120 mmHg BP Diastolic 80 mmHg Body Temperature 97.8 F O2 % BldC Oximetry 96 % BMI (Body Mass Index) 33.5 kg/m2 04/05/2017 Heart Rate 84 /min BP Systolic 130 mmHg BP Diastolic 80 mmHg Respiratory Rate 18 /min Body Temperature 98.1 F 04/03/2017 Height 72 inches 6'0" Weight 263.00 lb Heart Rate 72 /min BP Systolic 132 mmHg BP Diastolic 74 mmHg Respiratory Rate 16 /min Body Temperature 97.5 F BMI (Body Mass Index) 35.7 kg/m2 02/15/2017 Height 72 inches 6'0" Weight 307.00 lb Heart Rate 80 /min BP Systolic 132 mmHg BP Diastolic 88 mmHg Respiratory Rate 16 /min Body Temperature 97.4 F BMI (Body Mass Index) 41.6 kg/m2 12/28/2016 Height 72 inches 6'0" Weight 307.00 lb with shoes Heart Rate 80 /min BP Systolic Sitting 148 mmHg Rue large cuff BP Diastolic Sitting 90 mmHg Rue large cuff BP Systolic Standing 130 mmHg Rue large cuff BP Diastolic Standing 90 mmHg Rue large cuff Respiratory Rate 16 /min BMI (Body Mass Index) 41.6 kg/m2 11/24/2016 Height 72 inches 6'0" Weight 306.00 lb with shoes Heart Rate 86 /min BP Systolic Sitting 136 mmHg Ra lrg cuff BP Diastolic Sitting 90 mmHg Ra lrg cuff BMI (Body Mass Index) 41.5 kg/m2 Ejection Fraction 50% - 55% echo 07/10/15 10/27/2016 Height 72 inches 6'0" Weight 316.00 lb Heart Rate 78 /min BP Systolic 140 mmHg BP Diastolic 82 mmHg Respiratory Rate 18 /min Body Temperature 97.9 F BMI (Body Mass Index) 42.9 kg/m2 04/07/2016 Height 72 inches 6'0" Weight 312.00 lb Heart Rate 78 /min BP Systolic 144 mmHg BP Diastolic 102 mmHg Respiratory Rate 18 /min Body Temperature 97.9 F BMI (Body Mass Index) 42.3 kg/m2 04/04/2016 Height 72 inches 6'0" Weight 314.00 lb with shoes Heart Rate 96 /min BP Systolic Sitting 128 mmHg LA lrg cuff BP Diastolic Sitting 84 mmHg LA lrg cuff BMI (Body Mass Index) 42.6 kg/m2 Ejection Fraction 50%-55% echo 07/10/15 06/25/2015 Height 72 inches 6'0" Weight 322.75 lb with shoes Heart Rate 74 /min regular BP Systolic Sitting 124 mmHg LA, large cuff BP Diastolic Sitting 78 mmHg LA, large cuff BMI (Body Mass Index) 43.8 kg/m2 05/11/2015 Height 72 inches 6'0" Weight 323.75 lb w/ shoes Heart Rate 70 /min BP Systolic Sitting 126 mmHg LA, lg cuff BP Diastolic Sitting 88 mmHg LA, lg cuff BMI (Body Mass Index) 43.9 kg/m2 Ejection Fraction 40-45% 05/07/15 Cath 04/28/2015 Height 72 inches 6'0" Weight 322.00 lb w/ shoes Heart Rate 70 /min reg BP Systolic Sitting 116 mmHg Lue, lg cuff BP Diastolic Sitting 90 mmHg Lue, lg cuff BP Systolic Standing 116 mmHg Lue BP Diastolic Standing 94 mmHg Lue Respiratory Rate 18 /min BMI (Body Mass Index) 43.7 kg/m2 03/23/2015 Height 72 inches 6'0" Weight 323.00 lb w/shoes Heart Rate 76 /min BP Systolic Sitting 108 mmHg LA lg cuff BP Diastolic Sitting 84 mmHg LA lg cuff BMI (Body Mass Index) 43.8 kg/m2 Ejection Fraction 55-60 echo 02/26/15 02/03/2015 Height 72 inches 6'0" Weight 331.00 lb Heart Rate 68 /min BP Systolic Sitting 126 mmHg Left, large BP Diastolic Sitting 84 mmHg Left, large BMI (Body Mass Index) 44.9 kg/m2 Ejection Fraction 50%-55% 07/12/11 Tarun 11/13/2014 Height 72 inches 6'0" Weight 320.00 lb Heart Rate 101 /min BP Systolic Sitting 138 mmHg BP Diastolic Sitting 76 mmHg Respiratory Rate 20 /min O2 % BldC Oximetry 96 % BMI (Body Mass Index) 43.4 kg/m2 09/30/2014 Height 72 inches 6'0" Weight 325.38 lb Heart Rate 100 /min BP Systolic Sitting 124 mmHg BP Diastolic Sitting 86 mmHg O2 % BldC Oximetry 98 % BMI (Body Mass Index) 44.1 kg/m2 Neck Circumference in inches 19.5 10/13/2010 Height 72 inches 6'0" Weight 321.00 lb Heart Rate 70 /min BP Systolic Sitting 110 mmHg L BP Diastolic Sitting 84 mmHg L BMI (Body Mass Index) 43.5 kg/m2 Results Test Date Test Result H/L Range Note Laboratory test finding 08/01/2017 Ferritin 141.8 ng/mL 24-336 1 Folic Acid (Folate) > 20.00 ng/mL >3.99 2 Vitamin B12 346 pg/mL 180-914 3 Vitamin D Total 25(Oh) 34.9 ng/mL 20-50 4 Vitamin B1 (Whole Blood) 151 nmol/L 70-180 5 Vitamin E Level 9.0 mg/L 5.5 - 17.0 6 CBC Auto Diff 08/01/2017 White Blood Count 5.4 10^3/uL 3.5-10.8 Red Blood Count 4.62 10^6/uL 4.0-5.4 Hemoglobin 13.2 g/dL Low 14.0-18.0 Hematocrit 39 % Low 42-52 Mean Corpuscular Volume 85 fL 80-94 Mean Corpuscular Hemoglobin 29 pg 27-31 Mean Corpuscular HGB Conc 34 g/dL 31-36 Red Cell Distribution Width 14 % 10.5-15 Platelet Count 151 10^3/uL 150-450 Mean Platelet Volume 10 um3 7.4-10.4 Abs Neutrophils 3.7 10^3/uL 1.5-7.7 Abs Lymphocytes 1.3 10^3/uL 1.0-4.8 Abs Monocytes 0.3 10^3/uL 0-0.8 Abs Eosinophils 0.2 10^3/uL 0-0.6 Abs Basophils 0 10^3/uL 0-0.2 Abs Nucleated RBC 0 10^3/uL Granulocyte % 67.4 % 38-83 Lymphocyte % 23.1 % Low 25-47 Monocyte % 6.1 % 1-9 Eosinophil % 3.0 % 0-6 Basophil % 0.4 % 0-2 Nucleated Red Blood Cells % 0 Comp Metabolic Panel 08/01/2017 Sodium 140 mmol/L 133-145 Potassium 4.2 mmol/L 3.5-5.0 Chloride 106 mmol/L 101-111 Co2 Carbon Dioxide 30 mmol/L 22-32 Anion Gap 4 mmol/L 2-11 Glucose 89 mg/dL 70-100 Blood Urea Nitrogen 22 mg/dL 6-24 Creatinine 0.74 mg/dL 0.67-1.17 BUN/Creatinine Ratio 29.7 High 8-20 Calcium 9.8 mg/dL 8.6-10.3 Total Protein 6.5 g/dL 6.4-8.9 Albumin 4.1 g/dL 3.2-5.2 Globulin 2.4 g/dL 2-4 Albumin/Globulin Ratio 1.7 1-3 Total Bilirubin 0.80 mg/dL 0.2-1.0 Alkaline Phosphatase 46 U/L 34-104 Alt 24 U/L 7-52 Ast 14 U/L 13-39 Egfr Non- 117.1 >60 Egfr 150.7 >60 7 Iron & Iron Binding Capacity 08/01/2017 Iron 113 g/dL 50-212 Unsaturated Iron Binding 198 g/dL Total Iron Binding Capacity 311 g/dL 250-450 % Iron Saturation 36 % 15-55 Rapid Influenza A & B 07/10/2017 Influenza A Molecular NEGATIVE Negative 8 Molecular Influenza B Molecular NEGATIVE Negative Laboratory test finding 05/12/2017 Clotest SEE RESULT BELOW 9 Laboratory test finding 04/05/2017 C Difficile PCR <pending> 10 Stool Culture SEE RESULT BELOW 10, 11 Laboratory test finding 03/01/2017 Surgical Pathology SEE RESULT BELOW 12 Basic Metabolic Panel 02/15/2017 Sodium 138 mmol/L 133-145 Potassium 4.2 mmol/L 3.5-5.0 Chloride 102 mmol/L 101-111 Co2 Carbon Dioxide 29 mmol/L 22-32 Anion Gap 7 mmol/L 2-11 Glucose 86 mg/dL 70-100 Blood Urea Nitrogen 16 mg/dL 6-24 Creatinine 0.75 mg/dL 0.67-1.17 BUN/Creatinine Ratio 21.3 High 8-20 Calcium 9.8 mg/dL 8.6-10.3 Egfr Non- 115.3 >60 Egfr 148.3 >60 13 CBC No Diff 02/15/2017 White Blood Count 8.6 10^3/uL 3.5-10.8 Red Blood Count 5.11 10^6/uL 4.0-5.4 Hemoglobin 14.0 g/dL 14.0-18.0 Hematocrit 42 % 42-52 Mean Corpuscular Volume 83 fL 80-94 Mean Corpuscular Hemoglobin 28 pg 27-31 Mean Corpuscular HGB Conc 33 g/dL 31-36 Red Cell Distribution Width 15 % 10.5-15 Platelet Count 204 10^3/uL 150-450 Mean Platelet Volume 10 um3 7.4-10.4 Comp Metabolic Panel 11/29/2016 Sodium 141 mmol/L 133-145 Potassium 4.1 mmol/L 3.5-5.0 Chloride 106 mmol/L 101-111 Co2 Carbon Dioxide 29 mmol/L 22-32 Anion Gap 6 mmol/L 2-11 Glucose 103 mg/dL High 70-100 Blood Urea Nitrogen 20 mg/dL 6-24 Creatinine 0.90 mg/dL 0.67-1.17 BUN/Creatinine Ratio 22.2 High 8-20 Calcium 9.7 mg/dL 8.6-10.3 Total Protein 7.3 g/dL 6.4-8.9 Albumin 4.5 g/dL 3.2-5.2 Globulin 2.8 g/dL 2-4 Albumin/Globulin Ratio 1.6 1-3 Total Bilirubin 0.60 mg/dL 0.2-1.0 Alkaline Phosphatase 42 U/L 34-104 Alt 33 U/L 7-52 Ast 19 U/L 13-39 Egfr Non- 93.5 >60 Egfr 120.2 >60 14 Lipid Panel - [facility] 11/29/2016 Creatine Kinase(CK) 276 U/L High 10-223 15 Laboratory test finding 11/29/2016 Magnesium 2.1 mg/dL 1.9-2.7 16 TSH (Thyroid Stim Horm) 0.24 mcIU/mL Low 0.34-5.60 17 Lipid Profile (Trig/Chol/HDL) 11/29/2016 Triglycerides 90 mg/dL 18 Cholesterol 143 mg/dL 19 HDL Cholesterol 34.4 mg/dL 20 LDL Cholesterol 91 mg/dL 21 Laboratory test 05/24/2016 Surgical Pathology SEE RESULT BELOW 22 finding Cath Panel 05/04/2015 Partial Thrombo 39.2 seconds High 26.0-36.3 Time PTT CBC Auto Diff 05/04/2015 White Blood Count 9.2 10^3/uL 4.8-10.8 Red Blood Count 5.33 10^6/uL 4.0-5.4 Hemoglobin 14.9 g/dL 14.0-18.0 Hematocrit 45 % 42-52 Mean Corpuscular Volume 85 fL 80-94 Mean Corpuscular Hemoglobin 28 pg 27-31 Mean Corpuscular HGB Conc 33 g/dL 31-36 Red Cell Distribution Width 15 % 10.5-15 Platelet Count 217 10^3/uL 150-450 Mean Platelet Volume 10 um3 7.4-10.4 Abs Neutrophils 6.6 10^3/uL 1.5-7.7 Abs Lymphocytes 1.8 10^3/uL 1.0-4.8 Abs Monocytes 0.6 10^3/uL 0-0.8 Abs Eosinophils 0.2 10^3/uL 0-0.6 Abs Basophils 0 10^3/uL 0-0.2 Abs Nucleated RBC 0.01 10^3/uL Granulocyte % 71.6 % 38-83 Lymphocyte % 19.5 % Low 25-47 Monocyte % 6.7 % 1-9 Eosinophil % 1.8 % 0-6 Basophil % 0.4 % 0-2 Nucleated Red Blood Cells % 0.1 Basic Metabolic Panel 05/04/2015 Sodium 139 mmol/L 133-145 Potassium 4.4 mmol/L 3.5-5.0 Chloride 106 mmol/L 101-111 Co2 Carbon Dioxide 26 mmol/L 22-32 Anion Gap 7 mmol/L 2-11 Glucose 99 mg/dL 70-100 Blood Urea Nitrogen 18 mg/dL 6-24 Creatinine 0.97 mg/dL 0.67-1.17 BUN/Creatinine Ratio 18.6 8-20 Calcium 9.7 mg/dL 8.6-10.3 Egfr Non- 86.6 >60 Egfr 111.4 >60 23 Inr/Protime 05/04/2015 Inr 1.12 High 0.89-1.11 24 Basic Metabolic Panel 02/03/2015 Sodium 141 mmol/L 133-145 25 Potassium 4.4 mmol/L 3.5-5.0 25 Chloride 106 mmol/L 101-111 25 Co2 Carbon Dioxide 27 mmol/L 22-32 25 Anion Gap 8 mmol/L 2-11 25 Glucose 113 mg/dL High 70-100 25 Blood Urea Nitrogen 19 mg/dL 6-24 25 Creatinine 0.81 mg/dL 0.67-1.17 25 BUN/Creatinine Ratio 23.5 High 8-20 25 Calcium 9.6 mg/dL 8.6-10.3 25 Egfr Non- 106.6 >60 25 Egfr 137.2 >60 25, 26 CBC Auto Diff 01/17/2015 White Blood Count 9.1 10^3/uL 4.8-10.8 Red Blood Count 5.00 10^6/uL 4.0-5.4 Hemoglobin 13.8 g/dL Low 14.0-18.0 Hematocrit 42 % 42-52 Mean Corpuscular Volume 85 fL 80-94 Mean Corpuscular Hemoglobin 28 pg 27-31 Mean Corpuscular HGB Conc 33 g/dL 31-36 Red Cell Distribution Width 15 % 10.5-15 Platelet Count 169 10^3/uL 150-450 Mean Platelet Volume 9 um3 7.4-10.4 Abs Neutrophils 6.1 10^3/uL 1.5-7.7 Abs Lymphocytes 2.1 10^3/uL 1.0-4.8 Abs Monocytes 0.5 10^3/uL 0-0.8 Abs Eosinophils 0.3 10^3/uL 0-0.6 Abs Basophils 0.1 10^3/uL 0-0.2 Abs Nucleated RBC 0.01 10^3/uL Granulocyte % 67.8 % 38-83 Lymphocyte % 22.8 % Low 25-47 Monocyte % 5.7 % 1-9 Eosinophil % 2.9 % 0-6 Basophil % 0.8 % 0-2 Nucleated Red Blood Cells % 0.1 Laboratory test finding 01/17/2015 Blood Urea Nitrogen BUN 20 mg/dL 6-24 1 FASTING 2 FASTING 3 Normal Range 180 to 914 Indeterminate Range 145 to 180 Deficient Range <145 4 FASTING 5 ADDITIONAL INFORMATION This test was developed and its performance characteristics determined by [facility] in a manner consistent with CLIA requirements. This test has not been cleared or approved by the U.S. Food and Drug Administration. Test Performed by: [facility] [place] - [address] [address] 6 ADDITIONAL INFORMATION This test was developed and its performance characteristics determined by [facility] in a manner consistent with CLIA requirements. This test has not been cleared or approved by the U.S. Food and Drug Administration. Test Performed by: [facility] [place] [address] 7 Because ethnic data is not always readily available, this report includes an eGFR for both -Americans and non- Americans. The National Kidney Disease Education Program (NKDEP) does not endorse the use of the MDRD equation for patients that are not between the ages of 18 and 70, are , have extremes of body size, muscle mass, or nutritional status, or are non- or non-. According to the National Kidney Foundation, irrespective of diagnosis, the stage of the disease is based on the level of kidney function: Stage Description GFR(mL/min/1.73 m(2)) 1 Kidney damage with normal or decreased GFR 90 2 Kidney damage with mild decrease in GFR 60-89 3 Moderate decrease in GFR 30-59 4 Severe decrease in GFR 15-29 5 Kidney failure <15 (or dialysis) 8 Dependency Counselor: [id number] 9 SEE RESULT BELOW Name: REYNOLD CANTU : [address]: Paul Adkins MD Acct: [id number] Unit: [id number] AGE: 41 Location: ENDO Re05/12/17 SEX: M Status: REG REF SPEC: [id number] DAVID: 05/12/17-12[address] [facility] [address]: Paul Adkins MD REQ: [id number] RECD: 05/12/17 STATUS: ANKUSH GREENWOOD DR: Akhil Jones [employer] _ SOURCE: GAS ANTRUM SPDESC: ORDERED: Clotest Procedure Result Reported Site Clotest Final 05/13/17- 0756 ML Clotest Negative * ML - MAIN LAB ([facility]) . END OF REPORT * ML=Testing performed at Main Lab DEPARTMENT OF PATHOLOGY, [address] [place] [address] Prince Berry M.D. Director [facility] # [id number] 10 C. Difficile toxin testing is not performed on formed stool specimens. Test of cure on positive 11 SEE RESULT BELOW Name: CANTUREYNOLD Verdugo : [address]: Katie CESAR Acct: [id number] Unit: [id number] AGE: 41 Location: [facility] Re04/05/17 SEX: M Status: REG REF SPEC: [id number] DAVID: 04/05/[address] [facility] [address]: Katie CESAR REQ: [id number] RECD: 04/06/17 STATUS: COMP _ SOURCE: STOOL SPDESC: ORDERED: Stool Culture COMMENTS: C. Difficile toxin testing is not performed on formed stool specimens. Test of cure on positive patients is not recommended. Unable to perform Shiga Toxin testing. Specimen collection requirements were not met. Stool for Shiga Toxin testing must be received by the laboratory within 2 hours of collection or placed in [place] transport medium. *please interpret stool culture result with caution* Stool specimen was not placed into appropriate transport medium within recommended time-frame. Testing may be less Sensitive. Verbal to Genevieve Reilly RN. Procedure Result Reported Site Stool Culture Final 04/08/17- 1129 ML Result No enteric pathogens isolated Testing for Salmonella, Shigella, Aeromonas, Plesiomonas, Yersinia and Campylobacter are included in a Stool Culture. Vibrio spp not routinely tested for in a stool culture. If testing is desired, please request specifically when placing test order. Sensitivities not routinely performed on stool isolates, as antibiotics may prolong the carriage rate of bacteria. Please contact the microbiology lab if sensitivities are required. Stool Specimen Description Final 04/06/17- 1412 ML CONTINUED ON NEXT PAGE * ML=Testing performed at Main Lab DEPARTMENT OF PATHOLOGY, [address] [place] [address] Prince Berry M.D. Director [facility] # [id number] Patient: REYNOLD CANTU [id number] (Continued) Specimen: [id number] Collected: 04/05/17 Received: 04/06/17 (Continued) Procedure Result Reported Site Stool Specimen Description Final (continued) 04/06/17- 141 Stool Color Brown Stool Form Semi-formed Stool Consistency Soft Shiga Toxin 1 2 Final 04/06/17- 1351 ML Test not performed * ML - MAIN LAB ([facility]) . END OF REPORT * ML=Testing performed at Main Lab DEPARTMENT OF PATHOLOGY, [address] [place] [address] Prince Berry M.D. Director [facility] # [id number] 12 SEE RESULT BELOW Name: REYNOLD CANTU : [address]: Nik Campbell MD Acct: [id number] Unit: [id number] AGE: 41 Location: [place] [address] Re03/01/17 SEX: M Status: ADM IN SPEC: [id number] DAVID: 03/01/17- SUBM DR: Nik Campbell MD REQ: [id number] RECD: 03/01/17 STATUS: SOUT _ ORDERED: LEVEL 5 FINAL DIAGNOSIS Stomach, partial gastrectomy: -- Benign gastric tissue with no significant pathologic abnormalities. PRE-OPERATIVE DIAGNOSIS Morbid obesity GROSS DESCRIPTION The specimen is received in formalin labeled, Portion of Stomach, and consists of a 23.5 by up to 4.5 x 2.9 cm focally disrupted portion of gastric tissue with a prominent staple line. The serosa is predominantly smooth alva-pink with a few focal defects, a small amount of red-brown blood clot and scant adherent yellow fat. The mucosa is glistening alva-red with normal rugal folds. Bpm Developer sections, one cassette. Signed (signature on file) Jo Layton MD 1605 END OF REPORT * ML=Testing performed at Main Lab DEPARTMENT OF PATHOLOGY, [address] [place] [address] Prince Berry M.D. Director [facility] # [id number] 13 Because ethnic data is not always readily available, this report includes an eGFR for both -Americans and non- Americans. The National Kidney Disease Education Program (NKDEP) does not endorse the use of the MDRD equation for patients that are not between the ages of 18 and 70, are , have extremes of body size, muscle mass, or nutritional status, or are non- or non-. According to the National Kidney Foundation, irrespective of diagnosis, the stage of the disease is based on the level of kidney function: Stage Description GFR(mL/min/1.73 m(2)) 1 Kidney damage with normal or decreased GFR 90 2 Kidney damage with mild decrease in GFR 60-89 3 Moderate decrease in GFR 30-59 4 Severe decrease in GFR 15-29 5 Kidney failure <15 (or dialysis) 14 Because ethnic data is not always readily available, this report includes an eGFR for both -Americans and non- Americans. The National Kidney Disease Education Program (NKDEP) does not endorse the use of the MDRD equation for patients that are not between the ages of 18 and 70, are , have extremes of body size, muscle mass, or nutritional status, or are non- or non-. According to the National Kidney Foundation, irrespective of diagnosis, the stage of the disease is based on the level of kidney function: Stage Description GFR(mL/min/1.73 m(2)) 1 Kidney damage with normal or decreased GFR 90 2 Kidney damage with mild decrease in GFR 60-89 3 Moderate decrease in GFR 30-59 4 Severe decrease in GFR 15-29 5 Kidney failure <15 (or dialysis) 15 fasting before ov with Quin 16 fasting before ov with Quin 17 fasting before ov with Quin 18 Desirable <150 Borderline high 150-199 High 200-499 Very High >500 19 Desirable <200 Borderline high 200-239 High >239 20 Low <40 Desirable: 40-60 High: >60 21 Desirable: <100 mg/dL Near Optimal: 100-129 mg/dL Borderline High: 130-159 mg/dL High: 160-189 mg/dL Very High: >189 mg/dL 22 SEE RESULT BELOW Name: REYNOLD CANTU : [address]: Kota Kuo MD Acct: [id number] Unit: [id number] AGE: 40 Location: [place] Re05/24/16 SEX: M Status: REG [facility] [place] SPEC: [id number] DAVID: 05/24/16- SUBM DR: Kota Kuo MD REQ: [id number] RECD: 05/24/16 STATUS: PARESH GREENWOOD DR: Marilu Nunes MD _ ORDERED: LEVEL IV/2 FINAL DIAGNOSIS 1. Skin, right lateral lower back, wide excision: -- Scar, widely excised. -- No evidence of residual malignant melanoma. 2. Skin, left temporal scalp, excision: -- Scar and residual compound melanocytic nevus with architectural disorder and moderate cytologic atypia. -- Deep, tip, and lateral margins are clear. COMMENT: The previous lesions at these sites ([id number] #4 and #7) have been completely and widely excised. PRE-OPERATIVE DIAGNOSIS 1) Melanoma right lower back; suture guerra 12 o'clock anterior lateral apex, 2) atypical nevus left latter-day; suture guerra 12 o'clock anterior apex margin GROSS DESCRIPTION 1. The specimen is received in formalin labeled, Wide Excision Melanoma Right Lateral Lower Back, Suture Guerra 12:00 Anterior Lateral Franklin, and consists of an 8.1 x 2.4 cm alva-pink skin ellipse excised to a depth of 2.8 cm with a central 0.8 x 0.5 cm alva-pink ovoid area. There is a suture attached to one long axis, which designates the 12:00 anterior lateral apex. The specimen is inked as follows: 9:00 half black, 3: 00 half blue and 12:00 tip green, serially sectioned from 12:00 to 6:00 and hvac sales representative sections are submitted in cassettes A through J to include ellipse ends in cassette A. 2. The specimen is received in formalin labeled, Excision Atypical Nevus Left Temporal Scalp, Suture Guerra 12:00 Anterior Franklin Margin, and consists of a 3.3 x 1.3 cm alva-moss hairbearing skin ellipse excised to a depth of 0.5 cm. There is a suture attached to one CONTINUED ON NEXT PAGE * ML=Testing performed at Main Lab DEPARTMENT OF PATHOLOGY, [address] [place] [address] Prince Berry M.D. Director [facility] # [id number] RUN DATE: 05/26/16 [facility] LAB LIVE PAGE 2 Patient: REYNOLD CANTU [id number] (Continued) GROSS DESCRIPTION (Continued) GROSS DESCRIPTION (Continued) long axis, which designates the 12:00 anterior apex margin. The specimen is inked as follows: 9:00 half black, 3:00 half blue and 12:00 tip green, serially sectioned from 12:00 to 6:00 and entirely submitted in cassettes A through D to include ellipse ends in cassette A. Signed (signature on file) Jo Layton MD 02/01 1105 END OF REPORT * ML=Testing performed at Main Lab DEPARTMENT OF PATHOLOGY, [address] [place] [address] Prince Berry M.D. Director [facility] # [id number] 23 Because ethnic data is not always readily available, this report includes an eGFR for both -Americans and non- Americans. The National Kidney Disease Education Program (NKDEP) does not endorse the use of the MDRD equation for patients that are not between the ages of 18 and 70, are , have extremes of body size, muscle mass, or nutritional status, or are non- or non-. According to the National Kidney Foundation, irrespective of diagnosis, the stage of the disease is based on the level of kidney function: Stage Description GFR(mL/min/1.73 m(2)) 1 Kidney damage with normal or decreased GFR 90 2 Kidney damage with mild decrease in GFR 60-89 3 Moderate decrease in GFR 30-59 4 Severe decrease in GFR 15-29 5 Kidney failure <15 (or dialysis) 24 Effective immediately, due to a laboratory mean normal Protime change, the reference range for the INR has changed. 25 today 26 Because ethnic data is not always readily available, this report includes an eGFR for both -Americans and non- Americans. The National Kidney Disease Education Program (NKDEP) does not endorse the use of the MDRD equation for patients that are not between the ages of 18 and 70, are , have extremes of body size, muscle mass, or nutritional status, or are non- or non-. According to the National Kidney Foundation, irrespective of diagnosis, the stage of the disease is based on the level of kidney function: Stage Description GFR(mL/min/1.73 m(2)) 1 Kidney damage with normal or decreased GFR 90 2 Kidney damage with mild decrease in GFR 60-89 3 Moderate decrease in GFR 30-59 4 Severe decrease in GFR 15-29 5 Kidney failure <15 (or dialysis) Procedures Date CPT Code Description Status 07/24/2017 79172 EKG Tracing & Interpretation Completed 07/12/2017 88265 Echocardiogram, Limited Study Completed 07/12/2017 13358 Echocardiogram, Limited Study Completed 03/22/2017 56222 EKG, Interpretation Only Completed 03/01/2017 69212 Laparoscopy Surg Miles Restrict Procedure Longitudinal Completed Gastrectomy 03/01/2017 95366 Laparoscopy Surg Miles Restrict Procedure Longitudinal Completed Gastrectomy 12/06/2016 94629 ECHO Transthoracic, Real-Time 2D With Doppler And Color Completed Flow 11/28/2016 87082 Holter Monitor Review (24 hr)dr lloyd & enmanuel Completed only 11/25/2016 19232 ECG Monitor/Recording W/Visual Superimposition Scanning Completed 11/24/2016 46789 EKG Tracing & Interpretation Completed 04/04/2016 66143 EKG Tracing & Interpretation Completed 07/10/2015 52232 ECHO Transthoracic, Real-Time 2D With Doppler And Color Completed Flow 06/26/2015 25264 Holter Monitor Review (24 hr)dr paulamp; enmanuel Completed only 06/26/2015 25518 ECG Monitor/Recording W/Visual Superimposition Scanning Completed 06/25/2015 96625 EKG Tracing & Interpretation Completed 06/25/2015 20530 ECG Monitor/Recording W/Visual Superimposition Scanning Completed 06/25/2015 04379 Holter Monitor Review (24 hr)dr lloyd & enmanuel Completed only 05/11/2015 90644 EKG Tracing & Interpretation Completed 05/07/2015 64601 Left Heart Cath. Incl S/I Coronaries, Angio S/I V Gram Completed If Done 04/28/2015 39612 EKG Tracing & Interpretation Completed 04/23/2015 49319 Treadmill Interp/Report Only Completed 04/23/2015 41370 Stress Test Supervsn W/Out I/R Completed 03/23/2015 35194 EKG Tracing & Interpretation Completed 02/26/2015 73894 Color Flow Doppler/Interp & Reprt Completed 02/26/2015 80162 Pulse Wave/Continuous-Interp.RPT Completed 02/26/2015 92241 Echocardiography, Transesophageal, Real Time W/Image 2D Completed W/W/O M-M 02/26/2015 88910 EKG, Interpretation Only Completed 02/26/2015 75932 EKG, Interpretation Only Completed 02/26/2015 98695 Cardioversion Completed 02/24/2015 80178 ECHO Transthorasic Realtime 2D W Doppler & Color Completed Flow Hosp 02/19/2015 84295 Holter Monitor Review (24 hr)dr paulamp; enmanuel Completed only 02/19/2015 39441 ECG Monitor/Recording W/Visual Superimposition Scanning Completed 02/16/2015 45526 Holter Monitor Review (24 hr)dr prema peguero; enmanuel Completed only 02/16/2015 25189 ECG Monitor/Recording W/Visual Superimposition Scanning Completed 02/03/2015 39928 EKG Tracing & Interpretation Completed 01/18/2015 60968 EKG, Interpretation Only Completed 01/17/2015 03410 EKG, Interpretation Only Completed 01/17/2015 69095 Cardioversion Completed 01/16/2015 72906 EKG, Interpretation Only Completed 11/04/2014 63135 Polysomnography Sleep Staging 4+ Parameters W/Cpap Completed 08/12/2013 20775 Cardioversion Completed 10/24/2011 33778 Cardioversion Completed 10/24/2011 34515 EKG, Interpretation Only Completed 10/24/2011 67290 EKG, Interpretation Only Completed 07/12/2011 41628 Color Flow Doppler/Interp & Reprt Completed 07/12/2011 24366 Pulse Wave/Continuous-Interp.RPT Completed 07/12/2011 58669 Echocardiography, Transesophageal, Real Time W/Image 2D Completed W/W/O M-M 07/12/2011 90408 Cardioversion Completed 12/02/2010 50561 Treadmill Interp/Report Only Completed 12/02/2010 16371 Stress Test Supervsn W/Out I/R Completed 11/08/2010 26815 Holter Monitor Review (24 hr)dr review & interp Completed only 11/08/2010 46085 Holter Monitoring 24 HR New Completed 10/27/2010 58834 EKG Tracing & Interpretation Completed 10/13/2010 09391 EKG Tracing & Interpretation Completed 09/30/2010 61308 Color Flow Doppler/Interp & Reprt Completed 09/30/2010 32512 Pulse Wave/Continuous-Interp.RPT Completed 09/30/2010 86178 ECHO Transthorasic Realtime 2D W Doppler & Color Completed Flow Hosp 09/30/2010 58446 EKG, Interpretation Only Completed Encounters Type Date Location Provider CPT E/M Dx Office Visit 07/24/2017 3:40p [facility] S. 8[address]61 E66.01 Eagle Nunes I77.810 G47.33 I48.0 Office Visit 05/05/2017 3:00p [facility] [place] [address] Z02.1 Matilda M54.5 Z11.1 Z23 Office Visit 12/28/2016 8:30a [facility] ARSENIO Damian [address]11 I48.0 I10 I77.810 Office Visit 11/24/2016 9:00a [facility] S. 33461 E66.01 Ralph Nunes M.D. G47.33 R94.31 I34.0 I36.1 I42.9 Office Visit 10/27/2016 9:45a [facility] [place] [address] E66.01 Radiological Technologist I48.91 G47.33 Office Visit 04/07/2016 1:30p [facility] [place] [address] E66.01 Radiological Technologist Z68.41 Office Visit 04/04/2016 3:20p [facility] Qutaybeh S. Maghaydah, 40089 I48.91 M.D. E66.01 G47.33 R94.31 I34.0 I36.1 Office Visit 06/25/2015 11:40a [facility] Qutaybeh S. Maghaydah, 13560 I48.91 M.D. G47.33 E66.01 R94.31 Z01.818 Office Visit 05/11/2015 3:20p [facility] Qutaybeh S. Maghaydah, 12020 I48.2 M.D. G47.33 E66.01 R94.31 Office Visit 04/28/2015 9:15a [facility] S. 32028 I48.2 Ralph Nunes M.D. G47.33 E66.01 R00.2 R53.83 Office Visit 03/23/2015 9:00a [facility] Qutaybeh S. haydah, 69857 I48.2 M.DShannon G47.33 E66.01 R94.31 R00.2 Office Visit 02/03/2015 9:00a [facility] Qutaybeh S. Maghaydah, 77698 427.31 M.D. 327.23 278.01 794.31 Office Visit 01/18/2015 1:12p [facility] Cliff Haider, 87087 427.31 Hospitalists M.DShannon 327.23 278.01 Office Visit 01/17/2015 4:34p [facility] Vance Bolanos, 91008 427.31 M.D. 278.00 786.03 Office Visit 01/16/2015 1:11p [facility] Sheldon Craft, 69427 427.31 Assoc,pc Hospitalists M.D. Hospitalist 327.23 278.01 Office Visit 11/13/2014 9:00a [facility] Chris Nassar M.D. 81907 327.23 [facility] Office Visit 09/30/2014 9:00a [facility] Chris Nassar M.D. 73183 327.23 [facility] 427.31 Office Visit 08/12/2013 12:22p [facility], 97982 427.31 Assoc, Hospitalists MAlbaro 300.00 Office Visit 08/12/2013 10:27a [facility] Yamilex Hewitt, 61556 427.31 [facility] MShannonDShannon 427.32 785.1 Office Visit 10/24/2011 2:01p [facility] Qutaybeh S. Maghaydah, 77730 794.31 M.D. 427.31 785.0 276.8 Office Visit 07/12/2011 9:54a [facility] Qutaybeh S. Maghaydah, 83263 794.31 M.D. 427.31 424.0 Office Visit 12/02/2010 11:30a [facility] Qutaybeh S. Maghaydah, 70244 427.31 M.D. 785.1 785.0 Office Visit 10/13/2010 10:00a [facility] Qutaybeh S. Maghaydah, 53406 427.31 M.D. 327.23 794.31 Office Visit 09/30/2010 11:28a [facility] Qutaybeh S. Maghaydah, 89286 794.31 M.D. 427.31 785.0 785.1 Plan of Care Future Appointment(s):12/04/2017 8:15 am - Sejal Roberto DNP, RN, CLAUDE-BC at [facility]09/22/2017 - Sejal Roberto DNP, RN, LINE UP WORKER- BCG47.33 Obstructive sleep apnea (adult) (pediatric)New Orders:Sleep StudyFollow up:6 weeksRecommendations:Continue PAP device, Benefitting and compliant with treatment. Start CPAP auto 5-12 cm Use CPAP auto until follow- up at the Sleep Center. Recommend an in-lab NPSG study to check if residual apnea postweight loss. If you have any sleepiness while driving you MUST avoid operating a vehicle or machinery. If you have difficulty with your equipment, or need to replace your mask or hoses, please [facility]. A weight change of 20 pounds or more may have an effect on your equipment; if you are experiencing problems please call for an appointment. If you have any further questions, please call the [facility] at [phone].
[2017-09-28] MEDS ORDERED: Ketorolac INJ* 30 MG/ML 1 ML VIAL IM ONE (17:39)
[2017-09-28] MEDS ORDERED: NS 0.9% 1000 ML* 1,000 ML IV ONE (17:39)
[2017-09-28 18:00] LABS: ABS Basophils 0.1 10^3/ul (0-0.2); ABS Eosinophils 0.1 10^3/ul (0-0.6); ABS Lymphocytes 2.3 10^3/ul (1.0-4.8); ABS Monocytes 0.4 10^3/ul (0-0.8); ABS Neutrophils 4.6 10^3/ul (1.5-7.7); ABS Nucleated RBC 0 10^3/ul; Eosinophil % 1.5 % (0-6); Hematocrit 40 % (42-52); Hemoglobin 13.5 g/dl (14.0-18.0); Lymphocyte % 30.9 % (25-47); Mean Corpuscular HGB Conc 34 g/dl (31-36); Mean Corpuscular Hemoglobin 29 pg (27-31); Mean Corpuscular Volume 86 fL (80-94); Mean Platelet Volume 9.8 um3 (7.4-10.4); Nucleated Red Blood Cells % 0; Platelet Count 156 10^3/ul (150-450); Red Blood Count 4.61 10^6/ul (4.0-5.4); Red Cell Distribution Width 14 % (10.5-15); White Blood Count 7.4 10^3/ul (3.5-10.8)
[2017-09-28 18:15] LABS: Urine Appearance Clear; Urine Blood Negative (Negative); Urine Color Yellow; Urine Ketones Trace (Negative); Urine Protein Negative (Negative); Urine Specific Gravity 1.026 (1.010-1.030); Urine Urobilinogen Negative (Negative)
[2017-09-28 18:40] LABS: EGFR Non-African American 126.4 (>60)
--- NOTE | 2017-09-28 18:44 | RAD ---
INDICATION: RIGHT flank pain for 2 days. History of gastrohepatic ligament loculated fluid collection in March 2017. COMPARISON: March 22, 2017 TECHNIQUE: Multidetector CT images were obtained from the lung bases to the ischial tuberosities. Evaluation of the viscera is limited without IV contrast. Multiplanar reformation. REPORT: Unremarkable visualized inferior thorax. 1.3 cm sharply circumscribed water density cyst at the posterior margin of the LEFT lateral hepatic segment with mild interval enlargement. Smaller subcapsular cyst at the RIGHT posterior hepatic segment without significant change. No CT abnormality of the gallbladder or pancreas. Splenule noted at the splenic hilum. A few peripheral hypodense lesions at the spleen with dominant 1.4 cm lesion at the posterior caudal aspect enlarged from 1.0 cm previously. Postsurgical change of sleeve gastrectomy bariatric surgery. Gross resolution of previous fluid collection at the gastrosplenic ligament. Negative for CT abnormality of the small bowel or top normal diameter gas containing appendix visualized along the RIGHT pelvic sidewall. Negative for periappendiceal inflammatory change. Severe colonic diverticulosis without findings of diverticulitis. Moderately large volume of stool present throughout the colon. Negative for ascites or free air. Small fat-containing umbilical hernia without inflammatory change. Normal adrenal glands. Unremarkable unenhanced kidneys. Negative for urolithiasis or hydronephrosis. Unchanged dilatation of the distal LEFT ureter measuring up to 1.5 cm diameter without a visualized obstructing stone or lesion . Largely decompressed urinary bladder. Unremarkable seminal vesicles. Negative for lymphadenopathy. Normal diameter abdominal aorta and iliac arteries. Physiologic distention of the IVC. Negative for suspicious focal osseous lesions. IMPRESSION: 1. Interval enlargement of water density cystic-appearing lesions at the liver and spleen most suspicious for benign cysts. 2. Negative for obstructive uropathy. 3. No evidence for appendicitis. 4. Severe colonic diverticulosis without findings of acute diverticulitis. Moderately large volume of stool present throughout the colon.
[2017-09-28 20:14] VITALS: BP 0/0
--- NOTE | 2017-09-29 16:30 | ED ---
Amanda Al Thomas, scribed for Ignacio Johnson MD on 09/28/17 at 1742 . Abdominal Pain/Male - HPI Summary HPI Summary: The patient is a 42 year old male who yesterday had back pain and two episodes of diarrhea. Today, the patient developed right-sided flank pain that is worsened with deep breaths. He complains of dizziness when standing quickly. He denies nausea and vomiting. - History of Current Complaint Chief Complaint: EDFlankPain Stated Complaint: BACK/FLANK PAIN Time Seen by Provider: 09/28/17 17:18 Hx Obtained From: Patient Onset/Duration: Still Present Timing: Constant Severity Initially: Moderate Severity Currently: Severe Pain Intensity: 10 Pain Scale Used: 0-10 Numeric Location: Flank - right Aggravating Factor(s): Deep Breaths Alleviating Factor(s): Nothing Associated Signs And Symptoms: Positive: Dizzy - when standing quickly, Diarrhea. Negative: Fever, Nausea, Vomiting - Allergies/Home Medications Allergies/Adverse Reactions: Allergies Allergy/AdvReac Type Severity Reaction Status Date / Time bee venom protein (honey bee) Allergy Swelling Verified 09/28/17 17:25 enalapril Allergy Rash Verified 09/28/17 17:25 Home Medications: Home Medications Cyanocobalamin TAB* [Vitamin B12 TAB*] 500 mcg PO DAILY 09/28/17 [History Confirmed 09/28/17] Multivitamins/Minerals TAB* [Theragran/minerals TAB*] 1 tab PO DAILY 09/28/17 [ History Confirmed 09/28/17] Omeprazole CAP* [Prilosec CAP* 20 MG] 20 mg PO DAILY 09/28/17 [History Confirmed 09/28/17] PMH/Surg Hx/FS Hx/Imm Hx Endocrine/Hematology History: Reports: Hx Anticoagulant Therapy - He is supposed to be on Xarelto, but he ran out of this Rx 08/04. Denies: Hx Diabetes, Hx Thyroid Disease Cardiovascular History: Reports: Hx Hypertension, Other Cardiovascular Problems/ Disorders - AFIB Denies: Hx Angina, Hx Congestive Heart Failure, Hx Coronary Artery Disease, Hx Deep Vein Thrombosis, Hx Hypercholesterolemia, Hx Myocardial Infarction, Hx Pacemaker/ICD, Hx Valvular Heart Disease Respiratory History: Reports: Hx Sleep Apnea, Other Respiratory Problems/ Disorders - SLEEP APNEA Denies: Hx Asthma, Hx Chronic Obstructive Pulmonary Disease (COPD), Hx Lung Cancer, Hx Pneumonia, Hx Pulmonary Embolism GI History: Reports: Hx Diverticulosis Denies: Hx Gall Bladder Disease, Hx Gastroesophageal Reflux Disease, Hx Gastrointestinal Bleed, Hx Ulcer, Hx Urosepsis Comment Only: Other GI Disorders - diverticulitis History: Denies: Hx Kidney Stones, Hx Renal Disease Sensory History: Denies: Hx Contacts or Glasses, Hx Hearing Aid Opthamlomology History: Denies: Hx Contacts or Glasses Neurological History: Reports: Hx Headaches Denies: Hx Dementia, Hx Migraine, Hx Seizures, Hx Transient Ischemic Attacks (TIA) Psychiatric History: Reports: Hx Anxiety, Hx Depression Denies: Hx Schizophrenia, Hx Bipolar Disorder - Cancer History Cancer Type, Location and Year: [place] Hx Chemotherapy: No - Surgical History Surgery Procedure, Year, and Place: HEART ABLATION FOR A-FIB 06/04/15, SURGERY FOR [place]AN[place] Hx Anesthesia Reactions: No Infectious Disease History: No Infectious Disease History: Denies: Hx Clostridium Difficile, Hx Hepatitis, Hx Human Immunodeficiency Virus (HIV), Hx of Known/Suspected MRSA, Hx Shingles, Hx Tuberculosis, Hx Known/ Suspected VRE, Hx Known/Suspected VRSA, History Other Infectious Disease, Traveled Outside the [place] in Last 30 Days - Family History Known Family History: Positive: Diabetes, Other - Stroke in father. Negative: Cardiac Disease, Hypertension Family History: NON CONTRIBUTORY - Social History Alcohol Use: Rare Substance Use Type: Reports: None Smoking Status (MU): Former Smoker Type: Cigarettes Amount Used/How Often: CIGARS FOR ABOUT 1 YEAR Length of Time of Smoking/Using Tobacco: 1 YEAR Have You Smoked in the Last Year: No Review of Systems Positive: Other - Dizziness when standing quickly. Negative: Fever Positive: Diarrhea. Negative: Vomiting, Nausea Positive: flank pain - right All Other Systems Reviewed And Are Negative: Yes Physical Exam - Summary Physical Exam Summary: VITAL SIGNS: Reviewed. GENERAL: Patient is a well-developed and nourished male who is lying comfortable in the stretcher. Patient is not in any acute respiratory distress. HEAD AND FACE: Normocephalic and atraumatic. EYES: PERRLA, EOMI x 2, No injected conjunctiva. EARS: Hearing grossly intact. Ear canals and tympanic membranes are WNL. MOUTH: Oropharynx within normal limits. NECK: Supple, trachea is midline, no adenopathy, no JVD. CHEST: Symmetric, no tenderness at palpation LUNGS: Clear to auscultation bilaterally. No wheezing or crackles. CVS: RRR, S1 and S2 present, no murmurs or gallops appreciated. ABDOMEN: Soft, non-tender. No signs of distention. Positive bowel sounds. No rebound no guarding, and no masses palpated. No abdominal bruit or pulsations. BACK: He has positive right CVA tenderness. EXTREMITIES: FROM in all major joints, no edema, no cyanosis or clubbing. NEURO: Alert and oriented x 3. No acute neurological deficits. Speech is normal. SKIN: Dry and warm Triage Information Reviewed: Yes Vital Signs On Initial Exam: Initial Vitals Temp Pulse Resp BP Pulse Ox 97.8 F 80 20 119/91 98 09/28/17 16:15 09/28/17 16:15 09/28/17 16:15 09/28/17 16:15 09/28/17 16:15 Vital Signs Reviewed: Yes Diagnostics - Vital Signs Vital Signs Temp Pulse Resp BP Pulse Ox 09/28/17 17:24 71 98 09/28/17 17:22 117/82 09/28/17 16:15 97.8 F 80 20 119/91 98 - Laboratory Result Diagrams: 09/28/17 17:50 09/28/17 17:50 Lab Statement: Any lab studies that have been ordered have been reviewed, and results considered in the medical decision making process. - CT CT Abd/Pel CT Interpretation: No Acute Changes - IMPRESSION: 1. Interval enlargement of water density cystic-appearing lesions at the liver and spleen most suspicious for benign cysts. 2. Negative for obstructive uropathy. 3. No evidence for appendicitis. 4. Severe colonic diverticulosis without findings of acute diverticulitis. Moderately large volume of stool present throughout the colon. Dr. Johnson has reviewed this report. CT Interpretation Completed By: Radiologist Re-Evaluation - Re-Evaluation First Eval Re-Evaluation Time: 19:28 Comment: Results discussed. Patient will be discharged. Abdominal Pain Fem Course/Dx - Course Assessment/Plan: The patient is a 42 year old male who yesterday had back pain and two episodes of diarrhea. Today, the patient developed right-sided flank pain that is worsened with deep breaths. He complains of dizziness when standing quickly. He denies nausea and vomiting. Test results are without significant abnormality. The urinalysis is negative for UTI. CT Abd/Pel shows 1. Interval enlargement of water density cystic-appearing lesions at the liver and spleen most suspicious for benign cysts. 2. Negative for obstructive uropathy. 3. No evidence for appendicitis. 4. Severe colonic diverticulosis without findings of acute diverticulitis. Moderately large volume of stool present throughout the colon. I believe that the patients symptoms are secondary to constipation. Also, the patient has an enlargement of a water- density cystic lesion in the liver and spleen, most suspicious for benign cyst. There is no obstructive uropathy. There is no evidence for appendicitis. There is severe diverticulosis without any acute diverticulitis. In the ED course, the patient as given IV fluids and Toradol for the symptoms, and the symptoms improved. I discussed the findings and test results without the patient, and he understands and agrees with the plan. I gave the patient a prescription for Miralax and ibuprofen. I also recommended that the patient follow up with primary care for the lesions of the liver and spleen. - Diagnoses Provider Diagnoses: Flank pain, Constipation, Liver lesion Discharge - Sign-Out/Discharge Documenting (check all that apply): Discharge - Discharge Plan Condition: Stable Disposition: HOME Prescriptions: Ibuprofen TAB* [Motrin TAB* 600 MG] 600 mg PO Q8H PRN #30 tab PRN Reason: Pain Polyethylene Glycol 3350* [Miralax*] 17 gm PO DAILY #12 packet Patient Education Materials: Constipation (ED), Flank Pain (ED) Referrals: Akhil Jones NP [Primary Care Provider] - 3 Days Additional Instructions: Follow up with your primary care physician in three days. Return to the emergency department for any new or worsening symptoms. The documentation as recorded by the Amanda ritchie Thomas accurately reflects the service I personally performed and the decisions made by , Ignacio Johnson MD.
== END 2017-09-28 20:11 | disposition home or self-care (01) ==
LOC: ED 16:09
DX: R10.31 Right lower quadrant pain (principal); M54.9 Dorsalgia, unspecified; K59.00 Constipation, unspecified; K76.9 Liver disease, unspecified; R19.7 Diarrhea, unspecified; R42 Dizziness and giddiness; I48.91 Unspecified atrial fibrillation; I10 Essential (primary) hypertension; K57.90 Diverticulosis of intestine, part unspecified, without perforation or abscess without bleeding; F41.9 Anxiety disorder, unspecified; F32.9 Major depressive disorder, single episode, unspecified; Z85.820 Personal history of malignant melanoma of skin; Z87.891 Personal history of nicotine dependence
CPT/HCPCS: 36415; 74176; 80053; 81003; 83605; 83690; 85025; 86140; 96360; 96361; 96372; 99282; J1885

== ENCOUNTER 2017-10-15 13:46 | Emergency (ER) | payer BC ==
[2017-10-15 14:07] VITALS: BP 108/74
--- NOTE | 2017-10-15 14:31 | UC ---
Skin Complaint HPI - HPI Summary HPI Summary: c/o scrapping his left hand with the hammer as he was hitting a wrench to set loose a nut as he was working on his car yesterday. He was concerned about bleeding as he has changed the bandaid twice. Last Tdap was last year - History of Current Complaint Chief Complaint: UCLaceration Time Seen by Provider: 10/15/17 14:13 Stated Complaint: HAND INJURY Hx Obtained From: Patient Onset/Duration: Sudden Onset, Lasting Hours Skin Exposure Onset/Duration: Hours Ago Timing: Constant Onset Severity: Mild Current Severity: Mild Pain Intensity: 0 Location: Hand (Left) Aggravating Factor(s): Nothing Alleviating Factor(s): Nothing Associated Signs & Symptoms: Positive: Negative Related History: Trauma - Allergy/Home Medications Allergies/Adverse Reactions: Allergies Allergy/AdvReac Type Severity Reaction Status Date / Time bee venom protein (honey bee) Allergy Swelling Verified 10/15/17 14:08 enalapril Allergy Rash Verified 10/15/17 14:08 Review of Systems Constitutional: Negative All Other Systems Reviewed And Are Negative: Yes PMH/Surg Hx/FS Hx/Imm Hx Previously Healthy: Yes Cardiovascular History: Hypertension GI/ History: Gastroesophageal Reflux Psychological History: Depression Other History Of: Anticoagulant Therapy - He is supposed to be on Xarelto, but he ran out of this Rx 08/04. Negative For: HIV, Hepatitis B, Hepatitis C - Surgical History Surgical History: Yes Surgery Procedure, Year, and Place: HEART ABLATION FOR A-FIB 06/04/15, SURGERY FOR MELANOMA. gastric sleeve - Family History Known Family History: Positive: Diabetes, Other - Stroke in father. Negative: Cardiac Disease, Hypertension Family History: NON CONTRIBUTORY - Social History Alcohol Use: Rare Substance Use Type: None Smoking Status (MU): Former Smoker Type: Cigarettes Amount Used/How Often: CIGARS FOR ABOUT 1 YEAR Length of Time of Smoking/Using Tobacco: 1 YEAR Have You Smoked in the Last Year: No When Did the Patient Quit Smoking/Using Tobacco: 2 OR 3 YEARS AGO Household Exposure Type: Cigars - Immunization History Most Recent Influenza Vaccination: never Most Recent Tetanus Shot: unknown Most Recent Pneumonia Vaccination: unknown Physical Exam Triage Information Reviewed: Yes Appearance: Well-Appearing Vital Signs: Initial Vital Signs Temp 98.5 F 10/15/17 14:03 Pulse 80 10/15/17 14:03 Resp 18 04/29/18 14:03 BP 108/74 10/15/17 14:03 Pulse Ox 98 10/15/17 14:03 Vital Signs Reviewed: Yes Eyes: Positive: Conjunctiva Clear ENT: Positive: Hearing grossly normal Neck: Positive: Supple, Nontender, No Lymphadenopathy Respiratory: Positive: Lungs clear, Normal breath sounds, No respiratory distress Skin Exam: Other - superficial abrassion of the skin on dorsum of left hand on between first and second metacarpals. No active bleeding, no discharge, no surrounding erythema Course/Dx - Course Course Of Treatment: wound care with soap/water and neosporin ointment, change of dressing twice a day, f/u PCP as needed. - Diagnoses Provider Diagnoses: Skin abrassion left hand Discharge - Sign-Out/Discharge Documenting (check all that apply): Discharge/Admit/Transfer - Discharge Plan Condition: Stable Disposition: HOME Patient Education Materials: Bacitracin/Neomycin/Polymyxin B (On the skin) Referrals: Akhil Jones NP [Primary Care Provider] - - Billing Disposition and Condition Condition: STABLE Disposition: HOME
== END 2017-10-15 14:32 | disposition home or self-care (01) ==
LOC: UCEAST 13:46
DX: S60.512A Abrasion of left hand, initial encounter (principal); W27.8XXA Contact with other nonpowered hand tool, initial encounter; Y93.89 Activity, other specified; Y92.9 Unspecified place or not applicable; I10 Essential (primary) hypertension; K21.9 Gastro-esophageal reflux disease without esophagitis; F32.9 Major depressive disorder, single episode, unspecified; Z79.01 Long term (current) use of anticoagulants; Z87.891 Personal history of nicotine dependence
CPT/HCPCS: 99211; G0463

== ENCOUNTER 2018-06-26 16:23 | Emergency (ER) | payer SELFPAY ==
--- NOTE | 2018-06-26 16:38 | UC ---
Head Injury HPI - HPI Summary HPI Summary: 42 yo male presents s/p fall. He tells me that this morning around 0630 at work he slipped and fell on the ice. He landed on his right shoulder and hit his right zoroastrian on the ground. No LOC. He was able to get to his feet and continued to work all day. He says that he has had a mild headache all day. Has not taken anything OTC for his discomfort. Denies dizziness, vision changes, weakness, numbness, n/v. - History Of Current Complaint Chief Complaint: UCUpperExtremity Stated Complaint: SHOULDER AND HEAD INJURY Time Seen by Provider: 06/26/18 16:38 Hx Obtained From: Patient Onset/Duration: Sudden Onset Severity Currently: Moderate Severity Initially: Moderate Pain Intensity: 5 Pain Scale Used: 0-10 Numeric - Allergies/Home Medications Allergies/Adverse Reactions: Allergies Allergy/AdvReac Type Severity Reaction Status Date / Time bee venom protein (honey bee) Allergy Swelling Verified 06/26/18 16:35 enalapril Allergy Rash Verified 06/26/18 16:35 Home Medications: Home Medications Cholecalciferol (Vitamin D3) [Vitamin D3] 1,000 unit PO 06/26/18 [History] Omeprazole 40 mg PO 06/26/18 [History] Vitamin B Complex TAB* [B Complex-50*] 1 tab PO DAILY 06/26/18 [History Confirmed 06/26/18] PMH/Surg Hx/FS Hx/Imm Hx GI/ History: Gastroesophageal Reflux Other History Of: Anticoagulant Therapy - He is supposed to be on Xarelto, but he ran out of this Rx 08/04. Negative For: HIV, Hepatitis B, Hepatitis C - Surgical History Surgical History: Yes Surgery Procedure, Year, and Place: HEART ABLATION FOR A-FIB 06/04/15, SURGERY FOR MELANOMA. gastric sleeve - Family History Known Family History: Positive: Diabetes Negative: Cardiac Disease, Hypertension - Social History Occupation: Employed Full-time Lives: With Family Alcohol Use: Occasionally Substance Use Type: None Smoking Status (MU): Former Smoker Type: Cigarettes Amount Used/How Often: CIGARS FOR ABOUT 1 YEAR Length of Time of Smoking/Using Tobacco: 1 YEAR Have You Smoked in the Last Year: No When Did the Patient Quit Smoking/Using Tobacco: 2 OR 3 YEARS AGO Household Exposure Type: Cigars - Immunization History Most Recent Influenza Vaccination: never Most Recent Tetanus Shot: unknown Most Recent Pneumonia Vaccination: unknown Review of Systems All Other Systems Reviewed And Are Negative: Yes Constitutional: Positive: Negative Skin: Positive: Negative Eyes: Positive: Negative ENT: Positive: Negative Respiratory: Positive: Negative Cardiovascular: Positive: Negative Gastrointestinal: Positive: Negative Neurovascular: Positive: Negative Musculoskeletal: Positive: Other: - Right shoulder pain Neurological: Positive: Headache Psychological: Positive: Negative Physical Exam - Summary Physical Exam Summary: GENERAL: NAD. WDWN. No pain distress. SKIN: No rashes, sores, ulcers, masses, lesions. No ecchymosis or open wounds. HEENT: Head: AT/NC. No raccoon eyes or monaco's sign. Eyes: PERRLA. EOM intact. Conjunctiva clear without inflammation or discharge. NECK: Supple. Nontender. No lymphadenopathy. CHEST: CTAB. No r/r/w. No accessory muscle use. Breathing comfortably and in no distress. CV: RRR. Without m/r/g. Pulses intact. Brisk cap refill. MSK: FROM in B/L UEs and LEs with symmetric strength. RIGHT SHOULDER: Mild TTP at deltoid. FROM. Strength 5/5. No edema or obvious bony deformities. Negative apleys, empty can, major-citlaly, neer, solomon, and yergason tests. NEURO: A&Ox3. 3 word recall, remote, recent memory, ability to follow 2-step directions, and attention intact. CN: II: Peripheral menezes intact. Vision normal. III, IV, : EOMI. No nystagmus. PERRLA. V: Sensations intact and symmetric. Opens mouth and clenches teeth. VII: No facial asymmetry. Forehead wrinkles. Grins, shuts eyes, frowns, puffs cheeks. VIII: Hearing intact to finger rub. IX, X: Swallows and coughs. Uvula midline. XI: Shrugs shoulders. Turns head against resistance. XII: No tongue deviation [id number] are intact. Gait with normal base. Romberg: maintains balance, no pronator drift. Normal speech. No facial drooping. PSYCH: Age appropriate behavior. Triage Information Reviewed: Yes Vital Signs: Initial Vital Signs Temp 98.4 F 01/08/19 16:32 Pulse 83 06/26/18 16:32 Resp 18 06/26/18 16:32 BP 134/81 06/26/18 16:32 Pulse Ox 96 06/26/18 16:32 Vital Signs Reviewed: Yes Head Injury Course/Dx - Course Course Of Treatment: Suspect right shoulder soft tissue contusion - pt declined XR today. No CT at and pt did not want to go to the ED. Neuro exam is WNL, he has no risk factors for intracranial pathology, and pt's injury was about 12.5 hours ago - Discussed with him warning signs and symptoms of head injuries such as vision changes, worsening headache, dizziness, difficulty concentrating , and/or vomiting - if he develops any of these to go to the ED immediately. Advised to apply ice to his shoulder and head and take tylenol for discomfort. [facility] for a recheck within 1 week. - Differential Dx/Diagnosis Provider Diagnosis: Right shoulder pain, Head injury, Fall Discharge - Sign-Out/Discharge Documenting (check all that apply): Patient Departure All imaging exams completed and their final reports reviewed: No Studies - Discharge Plan Condition: Stable Disposition: HOME Patient Education Materials: Head Injury (ED) Referrals: Akhil Jones NP [Primary Care Provider] - Fredy Blunt MD [Medical Doctor] - As Soon As Possible Additional Instructions: If you develop a fever, shortness of breath, chest pain, new or worsening symptoms - please call your PCP or go to the ED. 1) Please apply ice to your head and your shoulder to reduce pain and swelling 2) Please call Dr. Blunt at the number below to schedule a follow up appointment regarding your work related injury 3) If you develop a worsening headache, dizziness, vision changes, vomiting, or confusion - please go to the ER or call 911. - Billing Disposition and Condition Condition: STABLE Disposition: Home - Attestation Statements Provider Attestation: Per institutional requirements, I have reviewed the chart, however, I was not consulted specifically or made aware of this patient by the midlevel provider. I did not personally evaluate, interact with , or disposition this patient.
[2018-06-26 16:41] VITALS: BP 134/81
[2018-06-26] MEDS ORDERED: Acetaminophen TAB* 325 MG PO ONE (16:47)
== END 2018-06-26 16:55 | disposition home or self-care (01) ==
LOC: UCEAST 16:23
DX: M25.511 Pain in right shoulder (principal); S09.90XA Unspecified injury of head, initial encounter; W00.0XXA Fall on same level due to ice and snow, initial encounter; Y92.9 Unspecified place or not applicable; Z88.8 Allergy status to other drugs, medicaments and biological substances; Z91.14 Patient's other noncompliance with medication regimen; Z85.820 Personal history of malignant melanoma of skin; Z87.891 Personal history of nicotine dependence
CPT/HCPCS: 99212; A9270-GY; G0463

== ENCOUNTER 2018-09-11 08:32 | Emergency (ER) | payer BC ==
[2018-09-11 08:43] VITALS: BP 123/74
[2018-09-11] MEDS ORDERED: Aspirin 81 mg CHEW TAB* 81 MG TAB.CHEW PO ONE (08:52)
--- NOTE | 2018-09-11 09:04 | UC ---
Cardiac HPI - HPI Summary HPI Summary: ONSET OF MIDSTERNAL CHEST PAIN THIS MORNING WHILE WALKING UP THE STAIRS. HE DESCRIBES IT A HEAVINESS. HE HAD ASSOCIATED SHORTNESS OF BREATH AND LIGHTHEADEDNESS. DENIES NAUSEA OR SWEATS. HAS A HISTORY OF MORBID OBESITY S/P GASTRIC SLEEVE SEVERAL YEARS AGO. AROUND THAT SAME TIME WAS DIAGNOSED WITH AFIB AND HAD CARDIAC ABLATION. - History of Current Complaint Chief Complaint: UCChestPain Stated Complaint: CHEST PAIN Time Seen by Provider: 09/11/18 08:34 Hx Obtained From: Patient Onset/Duration: Sudden Onset, Lasting Hours, Still Present Timing: Constant Initial Severity: Moderate Current Severity: Moderate Pain Intensity: 8 Chest Pain Location: Mid Sternal Character: Heaviness Aggravating Factor(s): Exertion Alleviating Factor(s): Nothing Associated Signs & Symptoms: Positive: Chest Pain, SOB. Negative: Fever, Nausea /Vomiting, Back Pain - Allergy/Home Medications Allergies/Adverse Reactions: Allergies Allergy/AdvReac Type Severity Reaction Status Date / Time bee venom protein (honey bee) Allergy Swelling Verified 09/11/18 08:42 enalapril Allergy Rash Verified 09/11/18 08:42 PMH/Surg Hx/FS Hx/Imm Hx Cardiovascular History: Atrial Fibrillation - S/P ABLATION Other GI/ History: GASTRIC SLEEVE Other History Of: Anticoagulant Therapy - He is supposed to be on Xarelto, but he ran out of this Rx 08/04. Negative For: HIV, Hepatitis B, Hepatitis C - Surgical History Surgical History: Yes Surgery Procedure, Year, and Place: HEART ABLATION FOR A-FIB 06/04/15, SURGERY FOR MELANOMA. gastric sleeve - Family History Known Family History: Positive: Diabetes, Other - Stroke in father. Negative: Cardiac Disease, Hypertension - Social History Alcohol Use: Occasionally Substance Use Type: None Smoking Status (MU): Former Smoker Type: Cigarettes Amount Used/How Often: CIGARS FOR ABOUT 1 YEAR Length of Time of Smoking/Using Tobacco: 1 YEAR Have You Smoked in the Last Year: No When Did the Patient Quit Smoking/Using Tobacco: 2 OR 3 YEARS AGO Household Exposure Type: Cigars - Immunization History Most Recent Influenza Vaccination: never Most Recent Tetanus Shot: unknown Most Recent Pneumonia Vaccination: unknown Review of Systems All Other Systems Reviewed And Are Negative: Yes Constitutional: Positive: Fatigue Respiratory: Positive: Shortness Of Breath Cardiovascular: Positive: Chest Pain Gastrointestinal: Positive: Negative Neurological: Positive: Other - LIGHTHEADED Physical Exam Triage Information Reviewed: Yes Appearance: Well-Appearing, No Pain Distress, Well-Nourished Vital Signs: Initial Vital Signs Temp 98.3 F 09/11/18 08:39 Pulse 84 09/11/18 08:39 Resp 18 09/11/18 08:39 BP 123/74 09/11/18 08:39 Pulse Ox 99 09/11/18 08:39 Vital Signs Reviewed: Yes Eyes: Positive: Conjunctiva Clear ENT: Positive: Hearing grossly normal Neck: Positive: Supple, Nontender, No Lymphadenopathy Respiratory Exam: Normal Cardiovascular Exam: Normal Abdomen Description: Positive: Soft Musculoskeletal: Positive: No Edema Neurological: Positive: Alert Psychological: Positive: Age Appropriate Behavior Skin: Negative: Rashes Diagnostics - EKG Cardiac Rate: NL - 83BPM Cardiac Rhythm: Sinus: Normal Ectopy: None ST Segment: Normal - Assessment/Plan Course Of Treatment: PT OFFERED TRANSPORT TO THE ED BY AMBULANCE BUT DECLINES. ADVISED THAT BY NOT TRAVELING IN A MONITORED SETTING HE COULD BE RISKING WORSENING OF HIS CONDITION THAT COULD POSE A THREAT TO HIS LIFE, HEALTH AND MEDICAL SAFETY. HE VERBALIZES UNDERSTANDING AND CONTINUES TO DECLINE AMBULANCE TRANSFER. - Clinical Impression Provider Diagnosis: Chest pain Discharge - Sign-Out/Discharge Documenting (check all that apply): Patient Departure All imaging exams completed and their final reports reviewed: No Studies - Discharge Plan Condition: Stable Disposition: TRANS HIGHER LVL OF CARE FAC Patient Education Materials: Chest Pain (ED) Referrals: Akhil Jones SOFTWARE INTEGRATION DEVELOPER [Primary Care Provider] - If Needed Additional Instructions: GO DIRECT[facility] TO [facility] [place] FOR FURTHER EVALUATION. YOU HAVE DECLINED TRANSFER TO THE ED BY AMBULANCE. BE ADVISED THAT BY NOT TRAVELING IN A MONITORED SETTING YOU COULD BE RISKING WORSENING OF YOUR CONDITION THAT COULD POSE A THREAT TO YOUR LIFE, HEALTH AND MEDICAL SAFETY. - Billing Disposition and Condition Condition: STABLE Disposition: Trans Higher Lvl of Care Fac
== END 2018-09-11 09:00 | disposition short-term general hospital (02) ==
LOC: UCEAST 08:32
DX: R07.89 Other chest pain (principal); R06.02 Shortness of breath; R42 Dizziness and giddiness; Z87.891 Personal history of nicotine dependence; Z91.030 Bee allergy status; Z88.8 Allergy status to other drugs, medicaments and biological substances
CPT/HCPCS: 93005; 99212; A9270-GY; G0463

== ENCOUNTER 2018-09-11 09:27 | Emergency (ER) | payer BC ==
[2018-09-11 10:30] LABS: ABS Basophils 0 10^3/ul (0-0.2); ABS Eosinophils 0 10^3/ul (0-0.6); ABS Lymphocytes 0.9 10^3/ul (1.0-4.8); ABS Monocytes 0.4 10^3/ul (0-0.8); ABS Neutrophils 11.3 10^3/ul (1.5-7.7); ABS Nucleated RBC 0 10^3/ul; Eosinophil % 0.2 %; Hematocrit 40 % (36-46); Hemoglobin 13.5 g/dL (14.0-18.0); Lymphocyte % 7.2 %; Mean Corpuscular HGB Conc 34 g/dL (31-36); Mean Corpuscular Hemoglobin 29 pg (27-31); Mean Corpuscular Volume 86 fL (80-94); Mean Platelet Volume 9.2 fL (7.4-10.4); Nucleated Red Blood Cells % 0; Platelet Count 152 10^3/uL (150-450); Red Blood Count 4.63 10^6 /uL (4.18-5.48); Red Cell Distribution Width 14 % (10.5-15); White Blood Count 12.7 10^3/uL (3.5-10.8)
[2018-09-11 10:43] LABS: Albumin/Globulin Ratio 1.5 (1-3); Calcium 8.9 mg/dL (8.6-10.3); EGFR African American 149.6 (>60); EGFR Non-African American 123.7 (>60); Globulin 2.7 g/dL (2-4); Magnesium 1.9 mg/dL (1.9-2.7); Potassium 3.7 mmol/L (3.5-5.0); Total Bilirubin 0.7 mg/dL (0.2-1.0); Total Protein 6.7 g/dL (6.4-8.9)
[2018-09-11 10:50] LABS: Influenza A Molecular NEGATIVE (Negative); Influenza B Molecular NEGATIVE (Negative)
[2018-09-11 11:28] VITALS: BP 107/66
--- NOTE | 2018-09-11 11:52 | ED ---
Nausea/Vomiting/Diarrhea HPI - HPI Summary HPI Summary: Patient is a 43-year-old male who presents to the ED with 1 day history of feeling fatigued. He states his chest, had the answers to get out of breath while he was running up the stairs. Immediately following this he felt very dizzy and had near syncopal episode. After sitting down, he felt improved and denies any chest heaviness or acid. This time. He comes in today due to his history of 3 years ago A. fib with ablation. Currently not on medications for this. He had previously seen Dr. Nunes, however has had no subsequent problems or follow-ups recently as he has remained stable. He denies any known sick contacts. He denies any fevers, sweats, chills. Denies any symptoms of palpitations. Patient states on arrival, he is feeling improved, however just fatigued. - History of Current Complaint Chief Complaint: EDChestPainROMI Stated Complaint: CHEST PRESSURE/ DHIARREA PER PT Time Seen by Provider: 09/11/18 09:41 Hx Obtained From: Patient Onset/Duration: Sudden Onset Timing: Constant Severity Initially: Mild Severity Currently: None Pain Intensity: 0 Pain Scale Used: 0-10 Numeric Aggravating Factor(s): Nothing Alleviating Factor(s): Nothing Nausea/Vomiting Presence: None - Risk Factors Influenza Risk Factors: Negative - Allergies/Home Medications Allergies/Adverse Reactions: Allergies Allergy/AdvReac Type Severity Reaction Status Date / Time bee venom protein (honey bee) Allergy Swelling Verified 09/11/18 09:44 enalapril Allergy Rash Verified 09/11/18 09:44 PMH/Surg Hx/FS Hx/Imm Hx Previously Healthy: Yes Endocrine/Hematology History: Reports: Hx Anticoagulant Therapy - He is supposed to be on Xarelto, but he ran out of this Rx 08/04. Denies: Hx Diabetes, Hx Thyroid Disease Cardiovascular History: Reports: Other Cardiovascular Problems/Disorders - AFIB Denies: Hx Angina, Hx Congestive Heart Failure, Hx Coronary Artery Disease, Hx Deep Vein Thrombosis, Hx Hypercholesterolemia, Hx Hypertension, Hx Myocardial Infarction, Hx Pacemaker/ICD, Hx Valvular Heart Disease Respiratory History: Reports: Hx Sleep Apnea, Other Respiratory Problems/ Disorders - SLEEP APNEA Denies: Hx Asthma, Hx Chronic Obstructive Pulmonary Disease (COPD), Hx Lung Cancer, Hx Pneumonia, Hx Pulmonary Embolism GI History: Reports: Hx Diverticulosis Denies: Hx Gall Bladder Disease, Hx Gastroesophageal Reflux Disease, Hx Gastrointestinal Bleed, Hx Ulcer, Hx Urosepsis Comment Only: Other GI Disorders - diverticulitis History: Denies: Hx Kidney Stones, Hx Renal Disease Sensory History: Denies: Hx Contacts or Glasses, Hx Hearing Aid Opthamlomology History: Denies: Hx Contacts or Glasses Neurological History: Reports: Hx Headaches Denies: Hx Dementia, Hx Migraine, Hx Seizures, Hx Transient Ischemic Attacks (TIA) Psychiatric History: Reports: Hx Anxiety, Hx Depression Denies: Hx Schizophrenia, Hx Bipolar Disorder - Cancer History Cancer Type, Location and Year: MELANOMA Hx Chemotherapy: No - Surgical History Surgery Procedure, Year, and Place: HEART ABLATION FOR A-FIB 06/04/15, SURGERY FOR MELANOMA. gastric sleeve Hx Anesthesia Reactions: No - Immunization History Hx Pertussis Vaccination: No Immunizations Up to Date: Yes Infectious Disease History: No Infectious Disease History: Denies: Hx Clostridium Difficile, Hx Hepatitis, Hx Human Immunodeficiency Virus (HIV), Hx of Known/Suspected MRSA, Hx Shingles, Hx Tuberculosis, Hx Known/ Suspected VRE, Hx Known/Suspected VRSA, History Other Infectious Disease, Traveled Outside the [place] in Last 30 Days - Family History Known Family History: Positive: Diabetes, Other - Stroke in father. Negative: Cardiac Disease, Hypertension Family History: NON CONTRIBUTORY - Social History Occupation: Unemployed, Employed Full-time Lives: With Family Alcohol Use: Occasionally Hx Substance Use: No Substance Use Type: Reports: None Hx Tobacco Use: Yes Smoking Status (MU): Former Smoker Type: Cigarettes Amount Used/How Often: CIGARS FOR ABOUT 1 YEAR Length of Time of Smoking/Using Tobacco: 1 YEAR Have You Smoked in the Last Year: No Review of Systems Positive: Fatigue. Negative: Fever, Chills, Skin Diaphoresis Negative: Blurred Vision, Diplopia Negative: Sore Throat Positive: Chest Pain - chest heaviness while running upstairs Negative: Shortness Of Breath, Cough Genitourinary: Negative Positive: no symptoms reported, see HPI Negative: Arthralgia, Myalgia Skin: Negative All Other Systems Reviewed And Are Negative: Yes Physical Exam Triage Information Reviewed: Yes Vital Signs On Initial Exam: Initial Vitals Temp Pulse Resp BP Pulse Ox 98.8 F 86 16 112/80 99 09/11/18 09:29 09/11/18 09:29 09/11/18 09:29 09/11/18 09:29 09/11/18 09:29 Vital Signs Reviewed: Yes Appearance: Positive: Well-Appearing, Well-Nourished Skin: Positive: Warm, Skin Color Reflects Adequate Perfusion Head/Face: Positive: Normal Head/Face Inspection Neck: Positive: Supple, No Lymphadenopathy Respiratory/Lung Sounds: Positive: Clear to Auscultation, Breath Sounds Present Cardiovascular: Positive: RRR, Pulses are Symmetrical in both Upper and Lower Extremities Musculoskeletal: Positive: Normal, Strength/ROM Intact Neurological: Positive: Speech Normal Diagnostics - Vital Signs Vital Signs Temp Pulse Resp BP Pulse Ox 09/11/18 11:33 99 F 70 18 107/66 98 09/11/18 11:15 73 17 107/66 98 09/11/18 11:00 79 20 98 09/11/18 10:45 80 16 115/68 98 09/11/18 10:18 77 22 110/72 98 09/11/18 10:00 76 17 98 09/11/18 09:45 80 17 113/71 98 09/11/18 09:29 98.8 F 86 16 112/80 99 - Laboratory Lab Results: Lab Results 09/11/18 09/11/18 09/11/18 Range/Units 10:09 10:09 10:09 WBC 12.7 H (3.5-10.8) 10^3/uL RBC 4.63 (4.18-5.48) 10^6 /uL Hgb 13.5 L (14.0-18.0) g/dL Hct 40 (36-46) % MCV 86 (80-94) fL MCH 29 (27-31) pg MCHC 34 (31-36) g/dL RDW 14 (10.5-15) % Plt Count 152 (150-450) 10^3/uL MPV 9.2 (7.4-10.4) fL Neut % (Auto) 89.0 % Lymph % (Auto) 7.2 % [place]rafton % (Auto) 3.5 % Eos % (Auto) 0.2 % Baso % (Auto) 0.1 % Absolute Neuts (auto) 11.3 H (1.5-7.7) 10^3/ul Absolute Lymphs (auto) 0.9 L (1.0-4.8) 10^3/ul Absolute Monos (auto) 0.4 (0-0.8) 10^3/ul Absolute Eos (auto) 0 (0-0.6) 10^3/ul Absolute Basos (auto) 0 (0-0.2) 10^3/ul Absolute Nucleated RBC 0 10^3/ul Nucleated RBC % 0 Sodium 140 (135-145) mmol/L Potassium 3.7 (3.5-5.0) mmol/L Chloride 107 (101-111) mmol/L Carbon Dioxide 27 (22-32) mmol/L Anion Gap 6 (2-11) mmol/L BUN 21 (6-24) mg/dL Creatinine 0.70 (0.67-1.17) mg/dL Est GFR ( Amer) 149.6 (>60) Est GFR (Non-Af Amer) 123.7 (>60) BUN/Creatinine Ratio 30.0 H (8-20) Glucose 102 H (70-100) mg/dL Lactic Acid 0.6 (0.5-2.0) mmol/L Calcium 8.9 (8.6-10.3) mg/dL Magnesium 1.9 (1.9-2.7) mg/dL Total Bilirubin 0.70 (0.2-1.0) mg/dL AST 23 (13-39) U/L ALT 39 (7-52) U/L Alkaline Phosphatase 57 (34-104) U/L Total Creatine Kinase 139 (10-223) U/L Troponin I 0.00 (<0.04) ng/mL Total Protein 6.7 (6.4-8.9) g/dL Albumin 4.0 (3.2-5.2) g/dL Globulin 2.7 (2-4) g/dL Albumin/Globulin Ratio 1.5 (1-3) Influenza A (Rapid) (Negative) Influenza B (Rapid) (Negative) 09/11/18 Range/Units 10:38 WBC (3.5-10.8) 10^3/uL RBC (4.18-5.48) 10^6 /uL Hgb (14.0-18.0) g/dL Hct (36-46) % MCV (80-94) fL MCH (27-31) pg MCHC (31-36) g/dL RDW (10.5-15) % Plt Count (150-450) 10^3/uL MPV (7.4-10.4) fL Neut % (Auto) % Lymph % (Auto) % Graft[place] % (Auto) % Eos % (Auto) % Baso % (Auto) % Absolute Neuts (auto) (1.5-7.7) 10^3/ul Absolute Lymphs (auto) (1.0-4.8) 10^3/ul Absolute Monos (auto) (0-0.8) 10^3/ul Absolute Eos (auto) (0-0.6) 10^3/ul Absolute Basos (auto) (0-0.2) 10^3/ul Absolute Nucleated RBC 10^3/ul Nucleated RBC % Sodium (135-145) mmol/L Potassium (3.5-5.0) mmol/L Chloride (101-111) mmol/L Carbon Dioxide (22-32) mmol/L Anion Gap (2-11) mmol/L BUN (6-24) mg/dL Creatinine (0.67-1.17) mg/dL Est GFR ( Amer) (>60) Est GFR (Non-Af Amer) (>60) BUN/Creatinine Ratio (8-20) Glucose (70-100) mg/dL Lactic Acid (0.5-2.0) mmol/L Calcium (8.6-10.3) mg/dL Magnesium (1.9-2.7) mg/dL Total Bilirubin (0.2-1.0) mg/dL AST (13-39) U/L ALT (7-52) U/L Alkaline Phosphatase (34-104) U/L Total Creatine Kinase (10-223) U/L Troponin I (<0.04) ng/mL Total Protein (6.4-8.9) g/dL Albumin (3.2-5.2) g/dL Globulin (2-4) g/dL Albumin/Globulin Ratio (1-3) Influenza A (Rapid) Negative (Negative) Influenza B (Rapid) Negative (Negative) Result Diagrams: 09/11/18 10:09 09/11/18 10:09 Lab Statement: Any lab studies that have been ordered have been reviewed, and results considered in the medical decision making process. Naus/Vom/Diarrhea Course/Dx - Course Course Of Treatment: During the course of treatment, the patient is noted to have normal the os. Heart rate 81, respirations 16, 98% on room air 115/68. He denies any complaints, however just states he is fatigued. He is kept on heart monitor during his stay which showed no acute findings. Labs obtained including a troponin of 0.00. Slightly elevated white count and BUN suggestive of dehydration. Influenza negative. On reexamination, again patient feels well and offers no complaints. He will be discharged with fatigue and I have advised him to call Dr. Nunes for close f/u. - Differential Dx/Diagnosis Differential Diagnoses - Male: Other - viral syndrome, chest pressure, fagitue Provider Diagnosis: Fatigue Condition At Discharge: Stable Discharge - Sign-Out/Discharge Documenting (check all that apply): Patient Departure Patient Received Moderate/Deep Sedation with Procedure: No - Discharge Plan Condition: Stable Disposition: HOME Patient Education Materials: Viral Syndrome (ED) Forms: *Work Release Referrals: Akhil Jones OIL TRUCK DRIVER [Primary Care Provider] - Additional Instructions: Please follow-up with your PCP As discussed, if he develop any chest pain or shortness of breath, he need to return to the ED immediately Drink plenty of fluids Rest for a few days - Billing Disposition and Condition Condition: STABLE Disposition: Home
== END 2018-09-11 11:33 | disposition home or self-care (01) ==
LOC: ED 09:27
DX: R53.83 Other fatigue (principal); I48.91 Unspecified atrial fibrillation; Z79.01 Long term (current) use of anticoagulants; G47.30 Sleep apnea, unspecified; K57.90 Diverticulosis of intestine, part unspecified, without perforation or abscess without bleeding; C43.9 Malignant melanoma of skin, unspecified; F32.9 Major depressive disorder, single episode, unspecified; F41.9 Anxiety disorder, unspecified; Z87.891 Personal history of nicotine dependence
CPT/HCPCS: 36415; 71046; 80053; 82550; 83605; 83735; 84484; 85025; 93005; 99282

== ENCOUNTER 2024-04-06 10:16 | Observation (INO) ==
[2024-04-06] MEDS ORDERED: Iodixanol 320 (CONTRAST) 200 ML SDV IV ONE (10:39)
[2024-04-06 10:47] LABS: ABS Basophils 0.1 10^3/uL (0.0-0.1); ABS Eosinophils 0.1 10^3/uL (0.0-0.5); ABS Lymphocytes 1.2 10^3/uL (1.0-4.8); ABS Monocytes 0.6 10^3/uL (0.0-1.1); ABS Neutrophils 6.3 10^3/uL (1.5-7.6); Eosinophil % 1.6 %; Hematocrit 43.4 % (38-53); Hemoglobin 14.7 g/dL (13.2-16.3); Mean Corpuscular Hemoglobin 29.7 pg (27-33); Mean Corpuscular Hgb Conc 33.9 g/dL (31-36); Mean Corpuscular Volume 87.6 fL (80-97); Mean Platelet Volume 9.9 fL (7.5-11.2); Nucleated Red Blood Cells % 0.1 %/100WBC (0.0-0.8); Platelet Count 194 10^3/uL (150-450); Red Blood Count 4.95 10^6/uL (4.06-5.63); Red Cell Distribution Width 14.3 % (12-17); White Blood Count 8.3 10^3/uL (3.6-10.2)
[2024-04-06 11:00] LABS: Activated Partial Thrombo Time 35.3 seconds (26.0-38.0); INR 0.98 (0.85-1.14)
[2024-04-06 11:25] LABS: Albumin 4.2 g/dL (3.2-5.2); Albumin/Globulin Ratio 1.6 (1-3); Calcium 9.4 mg/dL (8.6-10.3); Creatinine, Serum 0.82 mg/dL (0.67-1.17); Direct Bilirubin 0.1 mg/dL (0.03-0.18); Globulin 2.6 g/dL (2-4); HDL Cholesterol 49.4 mg/dL; Indirect Bilirubin 0.5 mg/dL (0.3-1.0); Potassium 3.9 mmol/L (3.5-5.0); Total Bilirubin 0.6 mg/dL (0.2-1.0); Total Protein 6.8 g/dL (6.4-8.9)
[2024-04-06] MEDS: Lactated Ringers 1000 ml BAG 1,000 ML IV ONE (11:37)
[2024-04-06] MEDS ORDERED: Sulfur Hexaflouride MICROSPHR 25 MG VIAL IV PRN (12:45)
[2024-04-06] MEDS: Enoxaparin 40 MG/0.4 ML SYR SUBCUT SCH (14:24)
[2024-04-06 15:14] LABS: Folate 14.45 ng/mL (5.90-24.80)
[2024-04-06 15:33] LABS: Magnesium 1.7 mg/dL (1.9-2.7)
[2024-04-06 15:48] LABS: Urine Appearance Clear; Urine Bilirubin Negative (Negative); Urine Blood Negative (Negative); Urine Color Light-Yellow; Urine Glucose 1+ (>=70 mg/dL) (Negative); Urine Ketones Negative (Negative); Urine Nitrite Negative (Negative); Urine Protein Negative (Negative); Urine Specific Gravity >1.050 (1.002-1.030); Urine Urobilinogen Negative (Negative)
[2024-04-06 15:50] LABS: Prolactin 15.6 ng/mL (1.0-20.0)
[2024-04-06] MEDS: Magnesium Sulfate 2 gm BAG 2 GM/50 ML BAG IVPB ONE (16:39)
[2024-04-07 07:50] LABS: Calcium 8.9 mg/dL (8.6-10.3); Creatinine, Serum 0.74 mg/dL (0.67-1.17); Potassium 4.1 mmol/L (3.5-5.0); eGFR CKD-EPI 112.5 (>60)
[2024-04-07] MEDS: CMCS: Lisdexamfetamine 10 mg CAP(NF) PO SCH (12:13)
[2024-04-08 14:35] VITALS: BP 137/90
== END 2024-04-08 17:51 | disposition home or self-care (01) ==
LOC: ED 10:16 → INTOOBSV 12:45 → EDHOLD 12:45 → MEDTELE 17:25
PROVIDERS: ADMIT Internal Medicine; ATTEND Internal Medicine